=== PATIENT | female | born 1975 | race Caucasian/White ===

== ENCOUNTER 2020-07-02 15:12 | Emergency (ER) | payer MEDICARE, SELFPAY ==
--- NOTE | ~2020-07-02 | XR_ITS ---
EXAMINATION: XR chest 2V DATE: 07/02/2020 16:38 INDICATION: Asthma exacerbation. TECHNIQUE: Frontal and lateral views of the chest were obtained. COMPARISON: Chest 2 views 07/30/2007 FINDINGS: The chest demonstrates clear lungs without pneumonia, pleural effusion, or pneumothorax. Th e heart size is normal. Surgical clips in the right upper quadrant are likely from cholecystectomy. IMPRESSION: 1. No acute cardiopulmonary disease. Reviewed, dictated and finalized at location A. LINE [employer]PER[employer]ENT
[2020-07-02 15:22] VITALS: PULSE 99; RESP 20; O2SAT 99
--- NOTE | 2020-07-02 15:22 | ED.URI ---
HPI - URI/Sore Throat General Chief Complaint: Asthma Stated Complaint: breathing issues Time Seen by Provider: 07/02/20 15:22 Source: patient Mode of arrival: ambulatory Limitations: physical limitation History of Present Illness HPI Narrative: Madeleine Williamson is a 44 yo female with a PMH of asthma who comes to express care with asthma exacerbation, Pr is barely able to speak in a whisper and is not moving much air. States it started 4 hours ago and ran through her steroid inhaler. Pts O2 sats on arrival are 98% but she is retracting in her breathing. Patient has not had an asthma attack in about 4 years; she has no nebulizer or other medication at home for asthma exacerbation Patient is unsure what triggered this attack; no known environmental allergies. Related Data Home Medications Medication Instructions Recorded Confirmed budesonide-formoterol [Symbicort] 4.5 inh INHALATION PRN PRN 07/02/20 07/02/20 Allergies Allergy/AdvReac Type Severity Reaction Status Date / Time topiramate Allergy Severe STROKE Verified 07/02/20 15:35 LIKE SYSTOMS ON L SIDE nitrofurantoin Allergy Intermediate Headache Verified 07/02/20 15:35 Review of Systems Review of Systems: Narrative: CONSTITUTIONAL: Denies fever, chills, sweats. EYES: Denies visual changes, redness, discharge. ENT: Denies rhinorrhea, congestion, sore throat, otalgia. CARDIOVASCULAR: Denies chest pain, palpitations, edema. RESPIRATORY: Has dyspnea, wheezing, cough; unable to move air. Retracting GASTROINTESTINAL: Denies abdominal pain, nausea, vomiting, diarrhea. GENITOURINARY: Denies dysuria, hematuria, abnormal discharge SKIN: Denies rash or itching. NEUROLOGIC: Denies numbness, or focal weakness. PSYCHIATRIC: Denies anxiety or depression. [facility] Past Medical History Medical History Asthma Chronic pain disorder Family History Family History Sibling Asthma Father Hypertension Social History Social History (Updated 07/02/20 @ 15:33 by Izabela Willams CNP) Smoking status: Former smoker Alcohol intake: current Gender identity (if verbalized by the patient): Female Comments At time of signature, I agree with nursing past medical, surgical, social and family history. There is no relevant family history pertinent to the presenting complaint. Exam Narrative: Exam Narrative: GENERAL: This is a well-nourished, well-developed patient, in moderate distress. HEAD: normocephalic, atraumatic. EYES: Sclera clear/white. Vision is grossly intact. EARS: External ears normal, Hearing grossly intact. NOSE: External nose normal without nasal discharge, nares without redness, no rhinorrhea. THROAT: Mucous membranes moist, NECK: Neck supple, non-tender CARDIOVASCULAR: Tachycardic rate and rhythm without murmurs, gallops, or rubs. RESPIRATORY: Very diminished to auscultation. Breath sounds barely audible . No wheezes, rales, or rhonchi. GASTROINTESTINAL: Abdomen soft, non-tender, SKIN: warm, intact with no suspicious lesions or rash, good texture and turgor. NEURO: awake, alert, and oriented to person, place and time. There were no obvious focal neurologic abnormalities. Steady gait EXTREMITIES: Normal range of motion. BACK: Nontender without deformity Course Course Emergency Course: [facility], breathing Started on DuoNeb treatment and Solu-Medrol 125 IM. chest X-ray-no acute cardiopulmonary disease, no pneumonia no pleural effusion Assess after first treatment:O2 sats 97%, HR 96, BP 112/70 Breath sounds much improved patient still feels somewhat short of breath second treatment given Pt anxious, even after using Xopenex so order small number of ativan Reiterated criteria to go to ER if again becomes sob. Pt verbalizes understanding. Pt light headed, needs to hydrate and eat when discha
[2020-07-02 15:26] VITALS: BP 131/77; PULSE 90; RESP 20; TEMP 36.6; O2SAT 99
[2020-07-02] MEDS: IPRATROPIUM BR 0.02% INH SOLN 0.5 MG/2.5 ML VIAL 1.5 MG INHALATION (15:31)
[2020-07-02] MEDS: ALBUTEROL SULFATE NEB 2.5 MG/3 ML INH INHALATION (15:33)
[2020-07-02] MEDS: methylPREDNISolone SOD SUCC 125 MG VIAL IM (15:39)
[2020-07-02 16:48] VITALS: PULSE 96; RESP 20; O2SAT 97
[2020-07-02] MEDS: IPRATROPIUM BR 0.02% INH SOLN 0.5 MG/2.5 ML VIAL 1 MG INHALATION (16:52)
[2020-07-02 17:00] VITALS: BP 121/70; PULSE 96; O2SAT 97
[2020-07-02 17:57] VITALS: PULSE 94; RESP 18; O2SAT 98
== END 2020-07-02 17:57 | disposition home or self-care (01) ==
PROVIDERS: Emergency Provider Nurse Practitioner; PCP Nurse Practitioner Adult Health
DX: F41.9 Anxiety disorder, unspecified (principal); J45.901 Unspecified asthma with (acute) exacerbation
CPT/HCPCS: 71046; 94640; 96372; 99213; G0463; J2930

== ENCOUNTER 2021-01-02 05:49 | Emergency (ER) | payer MEDICARE, SELFPAY ==
[2021-01-02 05:52] VITALS: BP 131/74; PULSE 99; RESP 20; TEMP 36.6; O2SAT 99
--- NOTE | 2021-01-02 05:58 | ED.ASTHMA ---
HPI - Asthma General Chief Complaint: Asthma Stated Complaint: Asthma attack Time Seen by Provider: 01/02/21 05:54 History of Present Illness HPI Narrative: 45 yo female w/ h/o asthma presents to the ED c/o asthma attack. She reports that she was awoken from sleep because she cannot breath. She tried to find her inhaler, but she was not able to. This happens every year about this time. Related Data Home Medications Medication Instructions Recorded Confirmed budesonide-formoterol [Symbicort] 4.5 inh INHALATION PRN PRN 07/02/20 07/02/20 Allergies Allergy/AdvReac Type Severity Reaction Status Date / Time topiramate Allergy Severe STROKE Verified 01/02/21 05:57 LIKE SYSTOMS ON L SIDE nitrofurantoin Allergy Intermediate Headache Verified 01/02/21 05:57 Review of Systems Review of Systems: All systems reviewed & are unremarkable except as noted in HPI and below Constitutional: Constitutional: Denies fever(s) Cardiovascular: Cardiovascular: Denies chest pain Respiratory: Respiratory: Reports cough, Reports dyspnea and Reports wheezing PMFSH Past Medical History Medical History Asthma Chronic pain disorder Family History Family History Sibling Asthma Father Hypertension Social History Social History Smoking status: Former smoker Alcohol intake: current Gender identity (if verbalized by the patient): Female Exam Const: General: no acute distress and alert Orientation/consciousness: patient oriented x3 HENMT: Head: normal to inspection Neck: Neck: normal visual inspection Resp: Effort & Inspection: able to speak in complete sentences Auscultation: wheezes (minimal) Other: coughing forcefully Cardio: Rate: regular rate Rhythm: regular rhythm Skin: General skin exam: normal color Neuro: General: patient oriented x3, moves all extremities, no focal motor deficits and CN's II-XI intact bilaterally Speech: normal speech Extrem: General: normal to inspection Psych: Affect: Anxious affect present Course Vital Signs Vital signs: Vital Signs Temperature 36.6 C 01/02/21 05:52 Pulse Rate 99 01/02/21 05:52 Respiratory Rate 20 01/02/21 05:52 Blood Pressure 131/74 01/02/21 05:52 Pulse Oximetry 99 01/02/21 05:52 Temperature 36.6 C 01/02/21 05:52 Pulse Rate 87 01/02/21 06:24 Respiratory Rate 16 01/02/21 06:24 Blood Pressure 131/74 01/02/21 05:52 Pulse Oximetry 99 01/02/21 05:52 MDM - Asthma Differential Diagnosis Differential diagnosis: Likely Acute exacerbation and other (anxiety other) Medical Records Attestation: I reviewed the patient's medical records. Lab Data Attestation: I reviewed the patient's lab results. Discharge Plan Discharge Clinical Impression: Asthma Qualifiers: Asthma severity: mild Asthma persistence: intermittent Asthma complication type: uncomplicated Qualified Code(s): J45.20 - Mild intermittent asthma, uncomplicated Patient Disposition: Home, Self-Care Condition: Stable Instructions: Asthma (ED) Prescriptions: New albuterol sulfate 90 mcg/actuation HFA aerosol inhaler 2 puff inhalation QID PRN (Reason: shortness of breath or wheezing) Qty: 8.5 RF: 0 No Action budesonide-formoterol [Symbicort] 160-4.5 mcg/actuation HFA aerosol inhaler 4.5 inh INHALATION PRN PRN (Reason: Shortness Of Breath Or Wheezing) RF: 0 prednisone 20 mg tablet 40 mg PO DAILY 5 Days Qty: 10 RF: 0 albuterol sulfate 90 mcg/actuation HFA aerosol inhaler 2 puff inhalation QID PRN (Reason: shortness of breath or wheezing) Qty: 8.5 RF: 1 cetirizine [Zyrtec] 10 mg tablet 10 mg PO DAILY Qty: 30 RF: 0 lorazepam [Ativan] 1 mg tablet 1 mg PO BID PRN (Reason: anxiety) Qty: 5 RF: 0 Follow-up/Referrals: Davy,MARCIE Hanson [Primar
[2021-01-02 06:05] VITALS: PULSE 88; RESP 14
[2021-01-02 06:24] VITALS: PULSE 87; RESP 16
[2021-01-02 06:34] VITALS: BP 115/72; PULSE 89; RESP 18; O2SAT 97
--- NOTE | 2021-01-02 06:43 | PC.NURSE ---
Pt states she felt much better after breathing tx. lungs clear. no difficulty breathing. Pt discharged.
== END 2021-01-02 06:42 | disposition home or self-care (01) ==
PROVIDERS: Emergency Provider Emergency Medicine; PCP Nurse Practitioner Adult Health
DX: J45.20 Mild intermittent asthma, uncomplicated (principal); Z87.891 Personal history of nicotine dependence
CPT/HCPCS: 94640; 99281; 99283

== ENCOUNTER 2021-01-09 04:49 | Emergency (ER) | payer MEDICARE, SELFPAY ==
[2021-01-09 04:53] VITALS: BP 127/88; PULSE 109; RESP 14; TEMP 36.4; O2SAT 100
[2021-01-09 05:01] VITALS: PULSE 109
--- NOTE | 2021-01-09 05:07 | ED.ASTHMA ---
HPI - Asthma History of Present Illness HPI Narrative: 45 yo female w/ h/o asthma presents to the ED c/o SOB. She reports that she awoke from sleep ggasping for air. She used her inhaler with some improvement. She initially appeared in some distress, but quickly improved and is now stating that it was probably just anxiety. Related Data Home Medications Medication Instructions Recorded Confirmed budesonide-formoterol [Symbicort] 4.5 inh INHALATION PRN PRN 07/02/20 07/02/20 Allergies Allergy/AdvReac Type Severity Reaction Status Date / Time topiramate Allergy Severe STROKE Verified 01/02/21 05:57 LIKE SYSTOMS ON L SIDE nitrofurantoin Allergy Intermediate Headache Verified 01/02/21 05:57 Review of Systems Review of Systems: All systems reviewed & are unremarkable except as noted in HPI and below PMFSH Past Medical History Medical History Asthma Chronic pain disorder Family History Family History Sibling Asthma Father Hypertension Social History Social History Smoking status: Former smoker Alcohol intake: current Gender identity (if verbalized by the patient): Female Exam Const: General: healthy appearing and alert Orientation/consciousness: patient oriented x3 Other: Gasping loudly HENMT: Head: normal to inspection Neck: Neck: normal visual inspection Chest: Chest palpation & inspection: normal inspection of the chest Resp: Effort & Inspection: tachypneic Auscultation: clear to auscultation bilaterally Cardio: Rate: regular rate Rhythm: regular rhythm Neuro: General: patient oriented x3, moves all extremities, no focal motor deficits and CN's II-XI intact bilaterally Gait exam (Neuro): Normal gait present Extrem: General: normal to inspection Psych: Affect: Anxious affect present Course Vital Signs Vital signs: Vital Signs Temperature 36.4 C L 01/09/21 04:53 Pulse Rate 109 H 01/09/21 04:53 Respiratory Rate 14 01/09/21 04:53 Blood Pressure 127/88 01/09/21 04:53 Pulse Oximetry 100 01/09/21 04:53 Temperature 36.4 C L 08/08/21 04:53 Pulse Rate 100 01/09/21 05:22 Respiratory Rate 20 01/09/21 05:22 Blood Pressure 127/88 01/09/21 04:53 Pulse Oximetry 96 01/09/21 05:22 MDM - Asthma MDM Narrative Medical decision making narrative: Gasping for air, but with clear lungs. Quickly resolved without any treatment. Discharge Plan Discharge Clinical Impression: Asthma, Panic attack Patient Disposition: Home, Self-Care Condition: Stable Instructions: Anxiety (ED) Prescriptions: No Action budesonide-formoterol [Symbicort] 160-4.5 mcg/actuation HFA aerosol inhaler 4.5 inh INHALATION PRN PRN (Reason: Shortness Of Breath Or Wheezing) RF: 0 prednisone 20 mg tablet 40 mg PO DAILY 5 Days Qty: 10 RF: 0 albuterol sulfate 90 mcg/actuation HFA aerosol inhaler 2 puff inhalation QID PRN (Reason: shortness of breath or wheezing) Qty: 8.5 RF: 1 cetirizine [Zyrtec] 10 mg tablet 10 mg PO DAILY Qty: 30 RF: 0 lorazepam [Ativan] 1 mg tablet 1 mg PO BID PRN (Reason: anxiety) Qty: 5 RF: 0 albuterol sulfate 90 mcg/actuation HFA aerosol inhaler 2 puff inhalation QID PRN (Reason: shortness of breath or wheezing) Qty: 8.5 RF: 0 Follow-up/Referrals: Lotus,MARCIE Hanson [Primary Care Provider] -
--- NOTE | 2021-01-09 05:10 | PC.NURSE ---
Pt has period of loud inspiratory stridorous breathing, alternating with speaking in complete sentences. pt appears anxious, but able to answer questions appropriately. 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 RT in room - called on pt's arrival - and ED MD also in room. Pt requesting breathing tx, although 02 sats on RA 100%, skin pwd, and pt able to speak without difficulty in complete sentences. 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
[2021-01-09 05:22] VITALS: PULSE 100; RESP 20; O2SAT 96
== END 2021-01-09 05:24 | disposition home or self-care (01) ==
PROVIDERS: Emergency Provider Emergency Medicine; PCP Nurse Practitioner Adult Health
DX: J45.909 Unspecified asthma, uncomplicated (principal); F41.0 Panic disorder [episodic paroxysmal anxiety]; Z87.891 Personal history of nicotine dependence
CPT/HCPCS: 99281

== ENCOUNTER 2021-01-11 15:27 | Outpatient (CLI) | payer MEDICARE, SELFPAY ==
--- NOTE | ~2021-01-11 | MM_ITS ---
EXAMINATION: MM screening collin BI w alok HISTORY: Screening TECHNIQUE: Craniocaudal and mediolateral oblique 3-D tomosynthesis images were obtained and synthetic 2-D images were generated. CAD analysis was submitted and interpreted. COMPARISON: No prior mammogram is available for comparison at this institution. BREAST PARENCHYMAL COMPOSITION: The breasts are heterogeneously dense, which may obscure small masses . FINDINGS: There is no evidence of suspicious mass, calcification, or architectural distortion to sugg est malignancy in either breast. There has been no suspicious interval change. IMPRESSION: 1. No mammographic evidence of malignancy. 2. Recommend routine screening mammography in one year. BI-RADS Category 1: Negative Reviewed, dictated and finalized at location A.
== END 2021-01-11 15:28 | disposition home or self-care (01) ==
PROVIDERS: PCP Nurse Practitioner Adult Health; Visit Provider Nurse Practitioner Adult Health
DX: Z12.31 Encounter for screening mammogram for malignant neoplasm of breast (principal)
CPT/HCPCS: 77063; 77067

== ENCOUNTER 2021-01-18 11:12 | Outpatient (CLI) | payer MEDICARE, SELFPAY ==
--- NOTE | ~2021-01-18 | US_ITS ---
EXAMINATION: US transvaginal DATE: 01/18/2021 11:43 INDICATION: Menorrhagia. Left lower quadrant pain. Comparison:Ultrasound dated 04/08/2006 TECHNIQUE: Multiple transabdominal and endovaginal sonographic images of the pelvis performed. FINDINGS: The uterus measures 6.1 x 3 x 4.6 cm. The endometrial complex measures 6 mm. The right ovary measures 2.2 x 1.5 x 1.4 cm and the left ovary measures 3.4 x 1.9 x 1.9 cm. There ar e small follicles in each ovary. Normal doppler signal in both ovaries. There is no free fluid in the pelvis. There are no abnormal masses seen on either side. IMPRESSION: 1. Normal pelvic ultrasound. Reviewed, dictated and finalized at location A.
== END 2021-01-18 11:13 ==
LOC: MICIMG 11:13
PROVIDERS: PCP Nurse Practitioner Adult Health; Visit Provider Nurse Practitioner Adult Health
DX: N92.0 Excessive and frequent menstruation with regular cycle (principal)
CPT/HCPCS: 76830

== ENCOUNTER 2021-12-28 00:21 | Emergency (ER) | payer MEDICARE, SELFPAY ==
--- NOTE | ~2021-12-28 | XR_ITS ---
EXAMINATION: XR elbow LT min 3V DATE: 12/28/2021 01:13 INDICATION: Left elbow pain post fall TECHNIQUE: Anteroposterior, two oblique and lateral views of the left elbow were obtained. COMPARISON: 07/21/2013 FINDINGS: Alignment is normal. No fracture or joint effusion. Joint spaces are normal. Soft tissues are unremar kable. IMPRESSION: 1. Negative left elbow radiographs. Reviewed, dictated and finalized at location A.
--- NOTE | ~2021-12-28 | XR_ITS ---
EXAMINATION: XR elbow RT min 3V DATE: 12/28/2021 01:13 INDICATION: Right elbow pain post fall TECHNIQUE: Anteroposterior, two oblique and lateral views of the right elbow were obtained. COMPARISON: None. FINDINGS: Alignment is normal. No fracture or joint effusion. Joint spaces are normal. Soft tissues are unremar kable. IMPRESSION: 1. Negative right elbow radiographs. Reviewed, dictated and finalized at location A.
[2021-12-28 00:27] VITALS: BP 125/79; PULSE 97; RESP 18; TEMP 36.1; O2SAT 97
--- NOTE | 2021-12-28 00:49 | ED.UPPEXIN ---
HPI - Extremity Injury (Upper) General Chief Complaint: Extremity Injury, Upper Stated Complaint: left arm injury Time Seen by Provider: 12/28/21 00:37 Source: patient Mode of arrival: ambulatory Limitations: no limitations History of Present Illness HPI narrative: This is a 46 year old female that presents to the ER for bilateral elbow pain after a fall in the shower today. Reports she slipped and fell backwards. She did catch herself with her elbows, but also hit her head. She did not lose consciousness. Reports bilateral elbow pain. Denies vision changes, vomiting, or headache. Related Data Home Medications Medication Instructions Recorded Confirmed budesonide-formoterol HFA 160 4.5 inh inhalation PRN PRN 07/02/20 07/02/20 mcg-4.5 mcg/actuation aerosol Shortness Of Breath Or Wheezing inhaler (Symbicort) methylprednisolone 4 mg tablets in mg 12/28/21 12/28/21 a dose pack Allergies Allergy/AdvReac Type Severity Reaction Status Date / Time topiramate Allergy Severe STROKE Verified 12/28/21 00:41 LIKE SYSTOMS ON L SIDE nitrofurantoin Allergy Intermediate Headache Verified 12/28/21 00:41 gabapentin Allergy Nausea and Verified 12/28/21 00:41 Vomiting Review of Systems Review of Systems: CONSTITUTIONAL: Denies fever EYES: Denies visual changes GASTROINTESTINAL: Denies vomiting MUSCULOSKELETAL: Reports joint pain, and myalgia. NEUROLOGIC: Denies numbness, or weakness. All systems reviewed & are unremarkable except as noted in HPI and below PMFSH Past Medical History Medical History Asthma Chronic pain disorder Family History Family History Sibling Asthma Father Hypertension Social History Social History Smoking status: Former smoker Alcohol intake: current Gender identity (if verbalized by the patient): Female Exam Narrative: GENERAL: Well-appearing, well-nourished, and in no acute distress. HEAD: Normocephalic, atraumatic. EYES: PERRLA and EOMI. ENT: Nares clear, no rhinorrhea or epistaxis. Mucous membranes moist. Oropharynx without tonsillar hypertrophy exudate or other lesions. Bilateral TMs pearly lockwood non-bulging NECK: Supple. No adenopathy or masses. CHEST: Clear to auscultation. No respiratory distress. No wheezes rales or rhonchi HEART: Regular rate and rhythm. No murmur heard. Normal peripheral pulses. EXTREMITIES: Normal range of motion. No edema or obvious deformity. Normal radial pulses SKIN: Warm, dry, no rash. NEURO: No focal deficits. Alert and oriented x3. Cranial nerves II through XII grossly intact PSYCH: Normal mood and affect Course Vital Signs Vital signs: Vital Signs Temperature 97.0 F L 12/28/21 00:27 Pulse Rate 97 12/28/21 00:27 Respiratory Rate 18 12/28/21 00:27 Blood Pressure 125/79 12/28/21 00:27 Pulse Oximetry 97 12/28/21 00:27 Oxygen Delivery Room Air 12/28/21 00:27 Temperature 97.0 F L 12/28/21 00:27 Pulse Rate 97 12/28/21 00:27 Respiratory Rate 18 12/28/21 00:27 Blood Pressure 125/79 12/28/21 00:27 Pulse Oximetry 97 12/28/21 00:27 Oxygen Delivery Room Air 12/28/21 00:27 MDM - Extremity Injury (Upper) MDM Narrative Medical decision making narrative: Patient presents to the emergency department after a fall in the shower today with bilateral elbow pain. She reports that she did hit her head. She did not lose consciousness. She is not having any headache or vomiting. No deficits noted on exam. She is not on any blood thinners. Patient is neurovascularly intact. Bilateral elbow x-rays without acute osseous abnormalities. Patient instructed to rest, ice and take [id number] pain medication as needed. She was placed in a sling for comfort. She is to follow-up with her primary care doctor. She was given jayshree
[2021-12-28] MEDS: IBUPROFEN 600 MG TABLET PO (00:58)
== END 2021-12-28 02:37 | disposition home or self-care (01) ==
PROVIDERS: Emergency Provider General Practice; PCP Nurse Practitioner Adult Health
DX: S50.02XA Contusion of left elbow, initial encounter (principal); J45.909 Unspecified asthma, uncomplicated; G89.29 Other chronic pain; Z87.891 Personal history of nicotine dependence; W18.2XXA Fall in (into) shower or empty bathtub, initial encounter
CPT/HCPCS: 73080; 99284; A4565; A9270

== ENCOUNTER 2024-02-11 14:19 | Emergency (ER) | payer SELFPAY ==
--- NOTE | ~2024-02-11 | CT_ITS ---
EXAMINATION: CT abdomen pelvis w con DATE: 02/11/2024 16:49 INDICATION: RLQ pain TECHNIQUE: Computed tomography (CT) of the abdomen and pelvis was performed with 100 mL Omnipaque-350 intravenous contrast. Automated exposure control and iterative reconstruction technique were employe d. The dose-length product was 425.21 mGy-cm. COMPARISON: None. FINDINGS: Lower thorax: Diffusely low-density parenchyma. Liver: Normal. Biliary/Gallbladder: Gallbladder is absent. No bile duct dilation. Pancreas: No mass or duct dilation. Spleen: Normal. Adrenals:No mass. Kidneys: No suspicious mass, obstructing stone, or hydronephrosis. GI tract: Mild distal esophageal and gastric wall edema. Very minimal pericolonic stranding adjacent to the proximal sigmoid (axial 150, coronal 91). No small or large bowel dilation. Normal appendix. D iverticulosis without diverticulitis. Mesentery/Peritoneum: No ascites, mass, or free air. Retroperitoneum: No mass. Pelvis: Pelvic organs are within normal limits. Small uterine fibroid. Soft Tissues: Soft tissues and body wall unremarkable. Bones: No acute osseous finding. IMPRESSION: Hepatic steatosis. Mild distal esophageal and gastric wall edema. Very mild pericolonic stranding at the proximal sigmoid, may represent colitis or early diverticulosi s. Reviewed, dictated and finalized at location K. IMPRESSION: Hepatic steatosis. Mild distal esophageal and gastric wall edema. Very mild pericolonic stranding at the proximal sigmoid, may represent colitis or early diverticulosis.
[2024-02-11 14:26] VITALS: BP 148/84; PULSE 101; RESP 18; TEMP 36.3; O2SAT 100
--- NOTE | 2024-02-11 14:31 | ED.ABDPAIN ---
HPI - Abdominal Pain General Chief Complaint: Abdominal Pain <Meliza Lizama PA-C - Last Filed: 02/13/24 09:37> Stated Complaint: RIGHT LOWER ABD PAIN, NAUSEA <Meliza Lizama PA-C - Last Filed: 02/13/24 09:37> Time Seen by Provider: 02/11/24 14:31 <Meliza Lizama PA-C - Last Filed: 02/13/24 09:37> Focused HPI: This is a 48-year-old female that presents to the emergency department for right lower quadrant abdominal pain. Ongoing over the last couple of days. Reports nausea. Denies fevers, vomiting. GENERAL: Well-appearing, well-nourished, and in no acute distress. HEAD: Normocephalic, atraumatic. CHEST: Clear to auscultation. ?No respiratory distress. HEART: Regular rate and rhythm.? NEURO: ?Alert and oriented x3. Patient screened in triage and initial orders placed.? ?Additional care and disposition to be based upon?diagnostic testing and treatment. <Meliza Lizama PA-C - Last Filed: 02/13/24 09:37> History of Present Illness HPI narrative: Agree with HPI. Patient with 3 days of abdominal pain right lower quadrant aching in become more sharp. Worse with palpation. Has been able on bowel movements. No diarrhea. No fevers chills or sweats. Sent to rule out appendicitis. <Benjamin Pérez MD - Last Filed: 02/11/24 21:57> Related Data Home Medications: Home Medications Medication Instructions Recorded Confirmed budesonide-formoterol HFA 160 4.5 inh inhalation PRN PRN 07/02/20 07/02/20 mcg-4.5 mcg/actuation aerosol Shortness Of Breath Or Wheezing inhaler (Symbicort) methylprednisolone 4 mg tablets in mg 12/28/21 12/28/21 a dose pack <DEYVI Oshea Last Filed: 02/13/24 09:37> Allergies/Adverse Reactions: Allergies Allergy/AdvReac Type Severity Reaction Status Date / Time topiramate Allergy Severe STROKE Verified 12/28/21 00:41 LIKE SYSTOMS ON L SIDE nitrofurantoin Allergy Intermediate Headache Verified 12/28/21 00:41 gabapentin Allergy Nausea and Verified 12/28/21 00:41 Vomiting <Meliza Lizama PA-C - Last Filed: 02/13/24 09:37> Review of Systems Review of Systems: All systems reviewed & are unremarkable except as noted in HPI and below <Benjamin Pérez MD - Last Filed: 02/11/24 21:57> Constitutional: Constitutional: Reports no additional constitutional complaints <Benjamin Pérez MD - Last Filed: 02/11/24 21:57> Cardiovascular: Cardiovascular: Reports no additional cardiovascular complaints <Benjamin Pérez MD - Last Filed: 02/11/24 21:57> Respiratory: Respiratory: Reports no additional respiratory complaints <Benjamin Pérez MD - Last Filed: 02/11/24 21:57> Gastrointestinal: Gastrointestinal: Reports abdominal pain, Denies constipation, Denies diarrhea, Denies nausea and Denies vomiting <Benjamin Pérez MD - Last Filed: 02/11/24 21:57> Genitourinary: Genitourinary: Reports no additional female genitourinary complaints <Benjamin Pérez MD - Last Filed: 02/11/24 21:57> PMFSH Past Medical History Medical History: Medical History Asthma Chronic pain disorder <Meliza Lizama PA-C - Last Filed: 02/13/24 09:37> Family History Family History: Family History Sibling Asthma Father Hypertension <Meliza Lizama PA-C - Last Filed: 02/13/24 09:37> Social History Social History: Social History Smoking status: Former smoker Alcohol intake: current Gender identity (if verbalized by the patient): Female <Meliza Lizama PA-C - Last Filed: 02/13/24 09:37> Exam Narrative: GENERAL: Well-appearing, well-nourished, and in no acute distress. HEAD: Normocephalic, atraumatic. ENT: Mucous membranes moist. CHEST: Clear to auscultation. No respiratory distress. HEART: Regular rate and rhythm. Normal p
[2024-02-11 15:19] LABS: BEDSIDEPREGUCG Negative (Negative)
[2024-02-11 15:24] LABS: Basophils Percent Auto 0.7 % (0.2-1.2); Eosinophils Absolute Auto 0.1 K/mm3 (0-0.3); Eosinophils Percent Auto 2.5 % (0-4.4); Hematocrit 39.1 % (37.0-47.0); Hemoglobin 12.9 g/dL (12.0-15.0); Immature Granulocyte Absolute 0.01 K/mm3 (0.00-0.031); Immature Granulocyte Percent A 0.2 % (0-0.5); Lymphocytes Absolute Auto 1.95 K/mm3 (0.9-3.2); Lymphocytes Percent Auto 44.8 % (18.3-44.2); Mean Corpuscular Hemoglobin 31.8 pg (26-34); Mean Corpuscular Volume 96.3 fl (80-100); Mean Platelet Volume 10.4 fl (7.4-10.4); Monocytes Absolute Auto 0.4 K/mm3 (0.1-0.6); Neutrophils Absolute Auto 1.9 K/mm3 (1.3-6.7); Neutrophils Percent Auto 42.8 % (45.5-73.1); Platelet Count Result 227 k/mm3 (150-375); Red Blood Count 4.06 M/mm3 (4.2-5.4); Red Cell Distribution Width 12.4 % (11.5-14.5); White Blood Count 4.4 K/mm3 (4.5-10.0)
[2024-02-11 15:30] LABS: Add Urine Microscopic? YES; Appearance Urine Cloudy (Clear); Bacteria Urine None Seen /hpf; Bilirubin Urine Negative (Negative); Blood Urine Negative (Negative); Color Urine Dark Yellow (Yellow); Glucose Urine UA Negative (Negative); Ketones Urine Negative (Negative); Leukocyte Esterase Ur Negative LEU/UL (Negative); Nitrate Urine Negative (Negative); Non Pathogenic Casts 0-2; Protein Urine Negative (Negative); RBC Urine 0-2 /hpf (0-2); Specific Grav Ur 1.013 (1.001-1.035); Squamous Epithelial Cell Urine None Seen /hpf (Few); Urobilinogen Urine 0.2 mg/dL (<2.0); WBC Urine 0-5 /hpf (0-3)
[2024-02-11 15:33] LABS: Alanine Aminotransferase 25 U/L (6-35); Albumin Level 4.2 g/dL (3.5-5.1); Alkaline Phosphatase 92 U/L (38-126); Anion Gap 13 mmol/L (4-12); Aspartate Amino Transferase 32 U/L (14-36); Bilirubin,Total 0.2 mg/dL (0.2-1.3); Blood Urea Nitrogen 12 mg/dL (7-17); Calcium 9.9 mg/dL (8.4-10.2); Carbon Dioxide 21 mmol/L (22-30); Chloride 109 mmol/L (98-107); Estimated CRCL calculation 84 ml/min; Estimated Glomerular Filt Rate > 60; Glucose 110 mg/dL (65-110); Lipase 129 U/L (23-300); Potassium 3.2 mmol/L (3.4-5.0); Sodium 143 mmol/L (137-145)
[2024-02-11 17:29] VITALS: BP 134/90; PULSE 81; RESP 16; TEMP 36.3; O2SAT 99
[2024-02-11 18:57] LABS: Magnesium 1.8 mg/dL (1.6-2.3)
[2024-02-11 20:28] VITALS: BP 141/94; PULSE 66; RESP 19; O2SAT 100
[2024-02-11] MEDS: AMOXICILLIN/CLAVULANATE K 875-125 MG TAB 1 TABLET PO (20:37)
[2024-02-11] MEDS: MORPHINE SULFATE (*CRX) 4 MG/ML INJ IV PUSH (20:39)
[2024-02-11 22:17] VITALS: BP 140/97; PULSE 84; RESP 17; O2SAT 98
== END 2024-02-11 22:18 | disposition home or self-care (01) ==
PROVIDERS: Physician Assistant; Emergency Provider Emergency Medicine
DX: R10.31 Right lower quadrant pain (principal); K57.92 Diverticulitis of intestine, part unspecified, without perforation or abscess without bleeding; J45.909 Unspecified asthma, uncomplicated; G89.29 Other chronic pain
CPT/HCPCS: 36415; 74177; 80053; 81001; 81025; 83690; 83735; 85025; 96374; 99284; A9270; J2270; Q9967

== ENCOUNTER 2024-09-23 13:12 | Outpatient (CLI) | payer MEDICARE, SELFPAY ==
--- NOTE | ~2024-09-23 | US_ITS ---
US pelvic complete w TV Ordering provider: Art Montenegro MD History: . N93.9 - Abnormal uterine and vaginal bleeding, unspecified . Comparison: None. Technique: Transabdominal and endovaginal ultrasound of the pelvis (Doppler ultrasound interrogation techniques used as needed for this exam.) FINDINGS: CERVIX: Normal. UTERUS: Measures 7.1x 3.2x 3.5 cm in length which is within normal limits and is anteverted. Hypoech oic area seen in the fundus measuring 1.4 x 1.1 x 1.5 cm. ENDOMETRIUM: Normal in thickness measuring 5 mm. No endometrial masses, cysts or fluid. CUL DE SAC: No free fluid. RIGHT OVARY: Not visualized. LEFT OVARY: Not visualized. ADNEXA: Normal. No mass. IMPRESSION: Fibroid uterus. Ovaries not well demonstrated. Otherwise, normal pelvic ultrasound. Reviewed, dictated and finalized at location A. IMPRESSION: Fibroid uterus. Ovaries not well demonstrated. Otherwise, normal pelvic ultraso und.
== END 2024-09-23 13:13 | disposition home or self-care (01) ==
LOC: MICIMG 13:13
PROVIDERS: Visit Provider Student in an Organized Health Care Education/Training Program
DX: D25.9 Leiomyoma of uterus, unspecified (principal); N93.9 Abnormal uterine and vaginal bleeding, unspecified
CPT/HCPCS: 76830; 76856

== ENCOUNTER 2024-11-05 14:50 | Outpatient (CLI) | payer MEDICARE, SELFPAY ==
--- OUTSIDE RECORDS SUMMARY | 2024-11-05 15:01 | XMS_ITS | Data Portability ---
Author Organization [facility] [employer], Main Office Address [address] [place] [address] Assessment No assessment recorded. Plan of Treatment Reminders Order Date Submit Date Provider Last Modified By Organization Details Last Modified Time Details Appointments None recorded. Lab CBC w/ auto diff 2024 025 [facility] (Lab), [address] [place], [address], 13:16:00 CMP, serum or plasma 2024 025 [facility] (Lab), [address] [place], [address], 13:15:58 TSH, serum or plasma 2024 025 [facility] (Lab), [address] [place], [address], 13:16:04 lipid panel, serum 2024 025 [facility] (Lab), [address] [place], [address], 13:15:57 glycohemog lobin, total, blood 2024 [facility] [address] ([facility] [address] [place], [address], 5 07:59:17 vitamin B12 + folate, serum or blood 2024 025 [facility] (Lab), [address] [place], [address], 13:16:03 ROSE (antinucle ar antibodies ) panel, serum 2024 025 [facility] (Lab), [address] [place], [address], 08:00:[address] referral - Would like hysterecto my. Please call patient to schedule an appointmen t. Thank you 2024 025 AAYUSH Mcnair MD, [address] [facility] [address], [place], [address], 17:40:25 Procedures None recorded. Surgeries None recorded. Imaging None recorded. Medication Orders furosemide 20 mg tablet 2024 [id number], [address], [place], [place], [id number], 15:39:52 Patient TargetsNo targets recorded. Patient InstructionsNo instructions recorded. 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 Please call patient to schedule an appointment. Thank you Referring Physician: Cynthia Irwin, Family Medicine, Encounter Date: 09/09/2024 Results Created Date Observation Date Name Description Value Unit Range Abnormal Flag Note LastModifiedBy Organization Detail LastModifiedTime 01/02/20 21 01/02/2021 VITAM IN B12/F OLATE , SERUM PANEL vitamin B12 299 pg/mL 200-11 00 normal Pleas e Note: Altho ugh the refer ence range for vitam in B12 is 200-1 100 pg/mL , it has been repor natanael that betwe en 5 and 10% of patie nts with value s betwe en 200 and 400 pg/mL may exper ience neuro psych iatri c and hemat ologi c abnor malit ies due to occul t B12 defic iency ; less than 1% of patie nts with value s above 400 pg/mL will have sympt oms. Not Available [facility] [address], [address], 01/02/2021 08:50:46 01/02/20 21 01/02/2021 VITAM IN B12/F OLATE , SERUM PANEL folate, serum 3.6 NG/mL low Refer ence Range Low: <3.4 Borde rline : 3.4-5 .4 Di l: >5.4 Not Available [facility] [address], [address], 01/02/2021 08:50:46 01/09/20 21 01/09/2021 CBC (INCL UDES DIFF/ PLT) white blood cell count 6.6 thous and/u L 3.8-10 .8 normal Not Available [facility] [address], [address], 01/09/2021 07:32:22 01/09/20 21 01/09/2021 CBC (INCL UDES DIFF/ PLT) red blood cell count 3.64 monique on/uL 3.80-5 .10 low Not Available [facility] [address], [address], 01/09/2021 07:32:22 01/09/20 21 01/09/2021 CBC (INCL UDES DIFF/ PLT) hemoglobin 12.5 g/dL 11.7-1 5.5 normal Not Available [facility] [address], [address], 01/09/2021 07:32:22 01/09/20 21 01/09/2021 CBC (INCL UDES DIFF/ PLT) hematocrit 36.4 % 35.0-4 5.0 normal Not Available [facility] [address], [address], 01/09/2021 07:32:22 01/09/20 21 01/09/2021 CBC (INCL UDES DIFF/ PLT) MCV 100.0 fL 80.0-1 00.0 normal Not Available [address], [address], 01/09/2021 07:32:22 01/09/20 21 01/09/2021 CBC (INCL UDES DIFF/ PLT) MCH 34.3 pg 27.0-3 3.0 high Not Available [address], [address], 01/09/2021 07:32:22 01/09/20 21 01/09/2021 CBC (INCL UDES DIFF/ PLT) MCHC 34.3 g/dL 32.0-3 6.0 normal Not Available [address], [address], 01/09/2021 07:32:22 01/09/20 21 01/09/2021 CBC (INCL UDES DIFF/ PLT) RDW 11.7 % 11.0-1 5.0 normal Not Available [address], [address], 01/09/2021 07:32:22 01/09/20 21 01/09/2021 CBC (INCL UDES DIFF/ PLT) platelet count 244 thous and/u L 140-40 0 normal Not Available [address], [address], 01/09/2021 07:32:22 01/09/20 21 01/09/2021 CBC (INCL UDES DIFF/ PLT) MPV 10.3 fL 7.5-12 .5 normal Not Available [address], [address], 01/09/2021 07:32:22 01/09/20 21 01/09/2021 CBC (INCL UDES DIFF/ PLT) absolute neutrophils 3696 cells /uL 1500-7 800 normal Not Available [address], [address], 01/09/2021 07:32:22 01/09/20 21 01/09/2021 CBC (INCL UDES DIFF/ PLT) absolute lymphocytes 2171 cells /uL 850-39 00 normal Not Available [address], [address], 01/09/2021 07:32:22 01/09/20 21 01/09/2021 CBC (INCL UDES DIFF/ PLT) absolute monocytes 587 cells /uL 200-95 0 normal Not Available [address], [address], 01/09/2021 07:32:22 01/09/20 21 01/09/2021 CBC (INCL UDES DIFF/ PLT) absolute eosinophils 92 cells /uL 15-500 normal Not Available [address], [address], 01/09/2021 07:32:22 01/09/20 21 01/09/2021 CBC (INCL UDES DIFF/ PLT) absolute basophils 53 cells /uL 0-200 normal Not Available [address], [address], 01/09/2021 07:32:22 01/09/20 21 01/09/2021 CBC (INCL UDES DIFF/ PLT) neutrophils 56 % normal Not Available [address], [address], 01/09/2021 07:32:22 01/09/20 21 01/09/2021 CBC (INCL UDES DIFF/ PLT) lymphocytes 32.9 % normal Not Available [address], [address], 01/09/2021 07:32:22 01/09/20 21 01/09/2021 CBC (INCL UDES DIFF/ PLT) monocytes 8.9 % normal Not Available [facility] [place] [address], [place], [address], 01/09/2021 07:32:22 01/09/20 21 01/09/2021 CBC (INCL UDES DIFF/ PLT) eosinophils 1.4 % normal Not Available [facility] [address], [place], [address], 01/09/2021 07:32:22 01/09/20 21 01/09/2021 CBC (INCL UDES DIFF/ PLT) basophils 0.8 % normal Not Available [facility] [address], [place], [address], 01/09/2021 07:32:22 03/16/20 21 03/16/2021 rapid strep group A, throa t STREP A negati ve Not Available [facility] [address] , [address], [place], [address], 03/16/2021 12:52:03 07/06/19 23 07/06/2022 COLOG UARD cologuard result reportable negati ve negati ve NEGAT GERMÁN TEST RESUL T. A negat germán Colog uard resul t indic ates a low likel ihood that a color ectal cance r (CRC) or advan arthur adeno ma (yoel omato us polyp s with more advan arthur pre-m align ant featu res) is prese nt. The chanc e that a perso n with a negat germán Colog uard test has a color ectal cance r is less than 1 in 1500 (nega tive predi ctive value >99.9 %) or has an advan arthur adeno ma is less than 5.3% (nega tive predi ctive value 94.7% ). These data are based on a prosp ectiv e cross -sect ional study of 10,00 0 indiv idual s at [facility] risk for color ectal cance r who were scree matheus with both Colog uard and colon oscop y. (Leeann Hernandez al, N Engl J Med 2014; 370(1 4):12 86-12 97) The di l value (refe rence range ) for this assay is negat germán. COLOG UARD RE-SC GALA BROCK RECOM MENDA TION: Perio dic color ectal cance r scree rafat is an impor tant part of preve ntive healt hcare for asymp tomat ic indiv idual s at [facility] risk for color ectal cance r. Follo wing a negat germán Colog uard resul t, the Ameri can Cance r Socie ty and U.S. Multi -Soci ety Task Force scree rafat guide lines recom mend a Colog uard re-sc reearlene ng inter cherry of 3 years . Refer ences : Ameri can Cance r Socie ty Guide line for Color ectal Cance r Scree rafat: https ://kaden w.can cer.o rg/ca ncer/ colon -rect al-ca ncer/ detec tion- diagn osis- stagi ng/ac s-rec ommen datio ns.ht ml.; Eugenio DK, Nadya vazquez CR, Vince weaver JK, Color ectal Cance r Scree rafat: Recom menda tions for Physi cians and Patie nts from the U.S. Multi -Soci ety Task Force on Color ectal Cance r Scree rafat , Am Radha gutierrez y 2017; 112:1 016-1 030. TEST DESCR IPTIO N: Pershing site algor ithmi c shanon sis of stool DNA-b iomar kers with hemog lobin immun oassa y. Quant itati ve value s of indiv idual bioma rkers are not repor table and are not assoc iated with indiv idual bioma rker resul t refer ence range s. Colog uard is inten ded for color ectal cance r scree rafat of adult s of eithe r sex, 45 years or older , who are at [facility] for color ectal cance r (CRC) . Colog uard has been appro jacob for use by the U.S. FDA. The perfo rmanc e of Colog uard was estab lishe d in a cross secti onal study of [facility] sk adult s aged 50-84 . Colog uard perfo rmanc e in patie nts ages 45 to 49 years was estim ated by geovanny claudio sis of near- age group s. Colon oscop ies perfo rmed for a posit germán resul t may find as the most clini mitch signi fican t lesio n: color ectal cance r [4.0% ], advan arthur adeno ma (incl uding sessi le fred natanale polyp s great er than or equal to 1cm diame ter) [20%] or non- advan arthur adeno ma [31%] ; or no color ectal neopl blanca [45%] . These estim ates are deriv ed from a prosp ectiv e cross -sect ional scree rafat study of 0 indiv idual s at [facility] risk for color ectal cance r who were scree matheus with both Colog uard and colon oscop y. (Leeann Coelho et al, N Engl J Med 2014; 370(1 4):12 86-12 97.) Colog uard may produ ce a false negat germán or false posit germán resul t (no color ectal cance r or preca ncero us polyp prese nt at colon oscop y follo w up). A negat germán Colog uard test resul t does not guara ntee the absen ce of CRC or advan arthur adeno ma (pre- cance r). The curre nt Colog uard scree rafat inter cherry is every 3 years . (Amer ican Cance r Socie ty and U.S. Multi -Soci ety Task Force ). Colog uard perfo rmanc e data in a 0 patie nt pivot al study using colon oscop y as the refer ence metho d can be acces sed at the follo wing locat ion: www.e xactl abs.c om/re sults . Addit ional descr iptio n of the Colog uard test proce ss, warni ngs and preca ution s can be found at www.c ologu vj.c om. Not Available [facility] (Cologuard Orders Only) [address], [place], [address], 07/13/2022 11:20:52 09/12/1909/15/2024 LIPID PANEL , STAND VJ cholesterol, total 286 mg/dL <200 high Not Available [facility] [address] [place], [address], 09/15/2024 13:15:57 09/12/1909/15/2024 LIPID PANEL , STAND VJ HDL cholesterol 119 mg/dL > or = 50 normal Not Available [facility] [address] [address] [place], [address], 09/15/2024 13:15:57 09/12/19 25 09/15/2024 LIPID PANEL , STAND VJ triglyceride s 92 mg/dL <150 normal Not Available [facility] [place] [address] [place], [address], 09/15/2024 13:15:57 09/12/1909/15/2024 LIPID PANEL , STAND VJ LDL-choleste rol 147 mg/dL _(eron c) high Refer ence range : <100 Annie able range <100 mg/dL for prima ry preve ntion ; <70 mg/dL for patie nts with CHD or diabe tic patie nts with > or = 2 CHD risk facto rs. LDL-C is now calcu lated using the Janet n-Hop kins calcu elsy n, which is a valid ated novel metho d provi mic farfan r accur acy than the Fried britney equat ion in the estim ation of LDL-C . Janet bui SS et al. KASIA. 2013; 310(1 9): 2061- 2068 (http ://ed ucati on.Qu estDi eddieos tics. com/f aq/FA Q164) Not Available [facility] [address] [place], [address], 09/15/2024 13:15:57 09/12/19 09/15/2024 LIPID PANEL , STAND VJ chol/HDLC ratio 2.4 (calc ) <5.0 normal Not Available [address], [address], 09/15/2024 13:15:57 09/12/19 25 09/15/2024 LIPID PANEL , STAND VJ non HDL cholesterol 167 mg/dL _(eron c) <130 high For patie nts with diabe syeda plus 1 major ASCVD risk facto r, treat ing to a non-H DL-C goal of <100 mg/dL (LDL- C of <70 mg/dL ) is consi dered a thera peuti c optio n. Not Available [address] [address] [place], [address], 09/15/2024 13:15:57 09/12/19 25 09/15/2024 COMPR EHENS GERMÁN METAB OLIC PANEL glucose 109 mg/dL 65-99 high Fasti ng refer ence inter cherry For someo ne witho ut known diabe syeda, a gluco se value betwe en 100 and 125 mg/dL is consi stent with predi abete s and shoul d be confi rmed with a follo w-up test. Not Available [address], [address], 09/15/2024 13:15:58 09/12/1909/15/2024 COMPR EHENS GERMÁN METAB OLIC PANEL urea nitrogen (BUN) 21 mg/dL 7-25 normal Not Available [facility] [place] [address] [place], [address], 09/15/2024 13:15:58 09/12/19 25 09/15/2024 COMPR EHENS GERMÁN METAB OLIC PANEL creatinine 0.68 mg/dL 0.50-1 .03 normal Not Available [place] [address] [place], [address], 09/15/2024 13:15:58 09/12/19 25 09/15/2024 COMPR EHENS GERMÁN METAB OLIC PANEL eGFR 106 mL/mi n/1.7 3m2 > or = 60 normal Not Available [address], [address], 09/15/2024 13:15:58 09/12/19 25 09/15/2024 COMPR EHENS GERMÁN METAB OLIC PANEL BUN/creatini ne ratio SEE NOTE: (calc ) 6-22 Not Repor natanael: BUN and Creat inine are withi n refer ence range . Not Available [address], [address], 09/15/2024 13:15:58 09/12/19 25 09/15/2024 COMPR EHENS GERMÁN METAB OLIC PANEL sodium 139 mmol/ L 135-14 6 normal Not Available [address], [address], 09/15/2024 13:15:58 09/12/19 25 09/15/2024 COMPR EHENS GERMÁN METAB OLIC PANEL potassium 3.6 mmol/ L 3.5-5. 3 normal Not Available [address], [address], 09/15/2024 13:15:58 09/12/19 25 09/15/2024 COMPR EHENS GERMÁN METAB OLIC PANEL chloride 97 mmol/ L 98-110 low Not Available [address], [address], 09/15/2024 13:15:58 09/12/19 25 09/15/2024 COMPR EHENS GERMÁN METAB OLIC PANEL carbon dioxide 31 mmol/ L 20-32 normal Not Available [address], [address], 09/15/2024 13:15:58 09/12/19 25 09/15/2024 COMPR EHENS GERMÁN METAB OLIC PANEL calcium 10.1 mg/dL 8.6-10 .4 normal Not Available [address], [address], 09/15/2024 13:15:58 09/12/19 25 09/15/2024 COMPR EHENS GERMÁN METAB OLIC PANEL protein, total 7.8 g/dL 6.1-8. 1 normal Not Available [address], [address], 09/15/2024 13:15:58 09/12/19 25 09/15/2024 COMPR EHENS GERMÁN METAB OLIC PANEL albumin 4.5 g/dL 3.6-5. 1 normal Not Available [address], [address], 09/15/2024 13:15:58 09/12/19 25 09/15/2024 COMPR EHENS GERMÁN METAB OLIC PANEL globulin 3.3 g/dL_ (calc ) 1.9-3. 7 normal Not Available [address], [address], 09/15/2024 13:15:58 09/12/19 25 09/15/2024 COMPR EHENS GERMÁN METAB OLIC PANEL albumin/glob ulin ratio 1.4 (calc ) 1.0-2. 5 normal Not Available [address], [address], 09/15/2024 13:15:58 09/12/19 25 09/15/2024 COMPR EHENS GERMÁN METAB OLIC PANEL bilirubin, total 0.9 mg/dL 0.2-1. 2 normal Not Available [address], [address], 09/15/2024 13:15:58 09/12/19 25 09/15/2024 COMPR EHENS GERMÁN METAB OLIC PANEL alkaline phosphatase 83 U/L 37-153 normal Not Available [address], [address], 09/15/2024 13:15:58 09/12/19 25 09/15/2024 COMPR EHENS GERMÁN METAB OLIC PANEL AST 27 U/L 10-35 normal Not Available [address], [address], 09/15/2024 13:15:58 09/12/19 25 09/15/2024 COMPR EHENS GERMÁN METAB OLIC PANEL ALT 21 U/L 6-29 normal Not Available [address], [address], 09/15/2024 13:15:58 09/12/19 25 09/15/2024 CBC (INCL UDES DIFF/ PLT) white blood cell count 7.9 thous and/u L 3.8-10 .8 normal Not Available [address], [address], 09/15/2024 13:15:59 09/12/19 25 09/15/2024 CBC (INCL UDES DIFF/ PLT) red blood cell count 4.47 monique on/uL 3.80-5 .10 normal Not Available [address], [address], 09/15/2024 13:15:59 09/12/19 25 09/15/2024 CBC (INCL UDES DIFF/ PLT) hemoglobin 14.8 g/dL 11.7-1 5.5 normal Not Available [address], [address], 09/15/2024 13:15:59 09/12/19 25 09/15/2024 CBC (INCL UDES DIFF/ PLT) hematocrit 44.5 % 35.0-4 5.0 normal Not Available [address], [address], 09/15/2024 13:15:59 09/12/19 25 09/15/2024 CBC (INCL UDES DIFF/ PLT) MCV 99.6 fL 80.0-1 00.0 normal Not Available [address], [address], 09/15/2024 13:15:59 09/12/19 25 09/15/2024 CBC (INCL UDES DIFF/ PLT) MCH 33.1 pg 27.0-3 3.0 high Not Available [address], [address], 09/15/2024 13:15:59 09/12/19 25 09/15/2024 CBC (INCL UDES DIFF/ PLT) MCHC 33.3 g/dL 32.0-3 6.0 normal For adult s, a sligh t decre ase in the calcu lated MCHC value (in the range of 30 to 32 g/dL) is most likel y not clini mitch signi cali t; fracisco er, it shoul d be inter prete d with cauti on in [facility] n with other red cell tara eters and the patie nt's clini eron condi tion. Not Available [address], [address], 09/15/2024 13:15:59 09/12/19 25 09/15/2024 CBC (INCL UDES DIFF/ PLT) RDW 12.3 % 11.0-1 5.0 normal Not Available [address], [address], 09/15/2024 13:15:59 09/12/19 25 09/15/2024 CBC (INCL UDES DIFF/ PLT) platelet count 202 thous and/u L 140-40 0 normal Not Available [address], [address], 09/15/2024 13:15:59 09/12/19 25 09/15/2024 CBC (INCL UDES DIFF/ PLT) MPV 10.6 fL 7.5-12 .5 normal Not Available [address], [address], 09/15/2024 13:15:59 09/12/19 25 09/15/2024 CBC (INCL UDES DIFF/ PLT) absolute neutrophils 5301 cells /uL 1500-7 800 normal Not Available [address], [address], 09/15/2024 13:15:59 09/12/19 25 09/15/2024 CBC (INCL UDES DIFF/ PLT) absolute lymphocytes 1793 cells /uL 850-39 00 normal Not Available [address], [address], 09/15/2024 13:15:59 09/12/19 25 09/15/2024 CBC (INCL UDES DIFF/ PLT) absolute monocytes 593 cells /uL 200-95 0 normal Not Available [address], [address], 09/15/2024 13:15:59 09/12/19 25 09/15/2024 CBC (INCL UDES DIFF/ PLT) absolute eosinophils 182 cells /uL 15-500 normal Not Available [address], [address], 09/15/2024 13:15:59 09/12/19 25 09/15/2024 CBC (INCL UDES DIFF/ PLT) absolute basophils 32 cells /uL 0-200 normal Not Available [facility] [address], [address], 09/15/2024 13:15:59 09/12/19 25 09/15/2024 CBC (INCL UDES DIFF/ PLT) neutrophils 67.1 % normal Not Available [address], [address], 09/15/2024 13:15:59 09/12/19 25 09/15/2024 CBC (INCL UDES DIFF/ PLT) lymphocytes 22.7 % normal Not Available [place] [address] [place], [address], 09/15/2024 13:15:59 09/12/19 25 09/15/2024 CBC (INCL UDES DIFF/ PLT) monocytes 7.5 % normal Not Available [place] [address] [place], [address], 09/15/2024 13:15:59 09/12/19 25 09/15/2024 CBC (INCL UDES DIFF/ PLT) eosinophils 2.3 % normal Not Available [address], [address], 09/15/2024 13:15:59 09/12/19 25 09/15/2024 CBC (INCL UDES DIFF/ PLT) basophils 0.4 % normal Not Available [place] [address] [place], [address], 09/15/2024 13:15:59 09/12/19 25 09/15/2024 ROSE SCREE N, IFA, W/REF L TITER AND VANNESSA RN ROSE screen, ifa POSITI VE negati ve abnormal ROSE IFA is a first line scree n for detec ting the prese nce of up to appro ximat sydni 150 autoa ntibo dies in vario us autoi mmune disea ses. A posit germán ROSE IFA resul t is sugge stive of autoi mmune disea se and refle xes to titer and vannessa sidhu. Furth er labor atory testi ng may be consi dered if clini mitch indic ated. For addit ional infor myron osborne e refer to http: //benita Alex stDia gnost ics.c om/fa q/FAQ 177 (This link is being provi ded for infor eli dyson/ maci spivey purpo ses only. ) Not Available [address] [address] [place], [address], 09/15/2024 13:16:01 09/12/19 25 09/15/2024 ANTIN UCLEA R ANTIB ODIES TITER AND PATTE RN ROSE titer 1:80 titer high A low level ROSE titer may be prese nt in pre-c linic al autoi mmune disea ses and di l indiv idual s. Refer ence Range <1:40 Negat germán 1:40- 1:80 Low Antib debby Level >1:80 [place] natanael Antib debby Level Not Available [address], [address], 09/15/2024 13:16:02 09/12/19 25 09/15/2024 ANTIN UCLEA R ANTIB ODIES TITER AND PATTE RN ROSE pattern Nuclea r, Dense Fine Speckl ed abnormal Dense fine speck led patte rn is seen in di l indiv idual s and rarel y assoc iated with syste duke lupus eryth emato sis (SLE) , Sjogr en's syndr ome and syste duke scler osis. AC-2: Dense Fine Speck led Inter natio nal Conse nsus on ROSE Patte rns (http s://d oi.or g/10. 1515/ cclm- 2017- 0052) Not Available [address], [address], 09/15/2024 13:16:02 09/12/19 25 09/15/2024 VITAM IN B12/F OLATE , SERUM PANEL vitamin B12 549 pg/mL 200-11 00 normal Not Available [address], [address], 09/15/2024 13:16:03 09/12/19 25 09/15/2024 VITAM IN B12/F OLATE , SERUM PANEL folate, serum 13.0 NG/mL normal Refer ence Range Low: <3.4 Borde rline : 3.4-5 .4 Di l: >5.4 Not Available [address], [address], 09/15/2024 13:16:03 09/12/19 25 09/15/2024 TSH W/REF CHLOE TO FT4 TSH w/reflex to FT4 2.99 mIU/L normal Refer ence Range > or = 20 Years 0.40- 4.50 Pregn flavio Range s First trime ster 0.26- 2.66 Secon d trime ster 0.55- 2.73 Third trime ster 0.43- 2.91 Not Available [facility] [address] , [place], [address], 09/15/2024 13:16:04 09/12/19 25 09/15/2024 HEMOG LOBIN A1C hemoglobin A1C 5.1 %_of_ total _HGB <5.7 normal For the purpo se of cathie douglass for the prese nce of diabe syeda: <5.7% Consi stent with the absen ce of diabe syeda 5.7-6 .4% Consi stent with incre ased risk for diabe syeda (pred iabet es) > or =6.5% Consi stent with diabe syeda This assay resul t is consi stent with a decre ased risk of diabe syeda. Curre ntly, no conse nsus exist s carlitos haile use of hemog lobin A1c for diagn osis of diabe syeda in child roel. Accor ding to Ameri can Diabe syeda Assoc iatio n (ADA) guide lines , hemog lobin A1c <7.0% repre sents optim al contr ol in non-p regna nt diabe tic patie nts. Diffe rent metri cs may apply to speci fic patie nt popul ation s. Stand ards of Medic al Care in Diabe syeda(A DA). Not Available [facility] [address] , [place], [address], 09/15/2024 13:16:06 01/12/20 21 01/11/2021 MAMMO , cathie douglass, bilat eral No observ ation record ed. [id number], [place], [address], 08/02/2022 08:13:11 01/19/20 21 01/18/2021 US, pelvi s, compl ete No observ ation record ed. MIGRATION. [facility] (Imaging) [address] [place] [address] [address], [place], [address], 08/02/2022 08:13:11 12/29/19 22 12/28/2021 XR, elbow No observ ation record ed. MIGRATION. [address], [place], [address], 08/02/2022 08:13:11 09/24/19 25 09/23/2024 US, pelvi s No observ ation record ed. [facility] [address] [facility] [address], [place], [address], 09/24/2024 08:34:11 10/04/19 25 10/03/2024 imagi ng/di agnos tic resul t No observ ation record ed. [address] [facility] [address] , [place], [address], 10/07/2024 12:47:28 10/07/19 25 10/03/2024 imagi ng/di agnos tic resul t No observ ation record ed. [facility] [address] [facility] [address], [place], [address], 10/07/2024 12:49:23 10/07/19 25 10/03/2024 US, eitan xnadiya s, lower extre mity, unila teral No observ ation record ed. [email or web address] [address] , [place], [address], 10/07/2024 12:49:47 10/07/19 25 10/03/2024 arter ial study , lower extre mity, compl ete No observ ation record ed. [email or web address] [address], [place], [address], 10/07/2024 13:04:01 Result Notes None recorded. 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 2020 Not Available [facility] 3 08:07:58 Anxiety 31442061 Active Not Available [facility] 3 08:07:58 Cough 79856922 Completed Not Available [facility] 3 08:07:58 Upper respirator y infection 45964698 Completed Not Available [facility] 3 08:07:58 Posterior rhinorrhea 11629099 Completed Not Available [facility] 3 08:07:59 Chronic pain 22922984 Active Not Available [facility] 3 08:07:59 Seizure 81290719 Active 2004 Not Available [facility] 3 08:07:59 Abnormal menstrual cycle 00247463 Active 2024 JACINTA Reyes [address], [place], [address] , [employer] 5 14:38:32 Bilateral lower leg edema 954717053 Active 2024 JACINTA Reyes [address], [address], [place], [address] , [employer] 5 14:39:07 Anti-nucle ar factor detected 808733977 Active 2024 Cynthia Irwin, 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 Procedure Notes None recorded. Medical Equipment None Reported. Allergies Allergen ID Allergen Name Allergen Category Reaction Reaction Severity Criticality Documentation Date Start Date Code Code System Note Provider Name and Address Organization Details Recorded Time 75823 Topamax medicatio n Not available Not available Not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
--- OUTSIDE RECORDS SUMMARY | 2024-11-05 15:01 | XMS_ITS | CONTINUITY OF CARE DOCUMENT ---
Author Name tho, bhavinshana Address Unknown Organization [facility] Address [address] [facility] [address] [place] [address] Phone [phone] Care Team Providers Care Linen Tech Name Role Phone Kerri HAYS, Kandis Roa Unavailable FATOU MAURICIO MD Unavailable [phone] CHIEF HYDROELECTRIC STATION OPERATOR, Cynthia Unavailable PROBLEMS Condition Status Date Provider Notes Cardiology examination active Kandis fagan MD Swelling of bilateral legs active Kandis Manning MD Localized swelling of hands, b/l active David Manning MD [facility] positive active Kandis Manning MD Preop cardiovasc. examination active Dimitris Manning MD Cardiovascular Condition Screening active S gurvinder Manning MD ENCOUNTERS Date Type Provider Location Encounter Diag nosis - In-person encounter Office Visit Kandis Manning MD [facility] Cardiovascular Condition Screening - In-person encounter Office Visit Kandis Manning MD [facility] Cardiology examinationSwelling of bilateral legsLocalized swelling of hands, b/Ilan positivePreop cardiovasc. examination VITAL SIGNS Date Observation Value Provider Body Mass Index (Ratio) 23.87 kg/m2 Jeremy Manning MD blood pressure, diastolic 85 mm[Hg] Yadi Larson blood pressure, systolic 109 mm[Hg] Susan Larson oxygen saturation, oximetry 96 % Sara Larson pulse rate 85 /min Sara Larson respiratory rate E&M 12 /min Sara Larson weight E&M 157 [lb_av] Sara Larson height E&M 68 [in_i] Sara Larson blood pressure, cuff size regular Yadi Larson weight E&M 163 [lb_av] Mary bassett Body Mass Index (Ratio) 24.78 kg/m2 Jeremy Manning MD blood pressure, diastolic 90 mm[Hg] Yadi Larson blood pressure, systolic 125 mm[Hg] Susan Larson oxygen saturation, oximetry 97 % Sara Larson pulse rate 92 /min Sara Larson height E&M 68 [in_i] Sara Larson weight E&M 163 [lb_av] Sara Larson respiratory rate E&M 12 /min Sara Larson blood pressure, cuff size regular An israel Larson ALLERGIES No Known Drug Allergies HISTORY OF MEDICATION USE Medication Status Instructions Dates Provider Indications Com ments furosemide 20 mg tablet active Sara Larson tramadol 50 mg tablet active Sara Larson INSURANCE PROVIDERS Payer name Policy type / Coverage type [place] [employer] party ID [employer] MEDICARE VALUE ADVANTRA PPO 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 October 22, 2024 W as seen by rhumatologist and told it was a false positive [place] in [place] in [place]. She had cardiac and vascular testing done as noted above. Her EKG demonstrated PRWP. Stress without ischemia. Echo normal LV function. Negativel DVT study. Normal BEBETO. U leah review of invasive and noninvasive testing and recent exam the patient is an acceptable candidate for the planned HYSTERECTOMY surgical procedure recommend to maintain his blood pressure range of 110 to 140 mmHg and a heart rate of 60-80 B p.m.. It is okay to use IV beta blockers calcium channel blockers nitrates and afterload reducing agents to maintain the aforementioned hemodynamics parameters. Tele monitoring and EKG should be done if the patient has arrhythmia during procedure Kandis Manning MD Cardiology:Summary a nd Interpretation 1 . Normal exercise capacity 2 . Normal hemodynamic response to exercise. [address] or T changes. 4 . No significant arrhythmia except for rare PVCs. 5 . There is no evidence for exercise-induced myocardial ischemia . ...................................................... ............Ifeanyi Granados MD October 03, 2024 3:37 PM S he got to 92% of targed max HR. ECHO 10/03/24 CONCLUSIONS: 1 . Normal left ventricular systolic function. Normal left ventricular size. Normal left ventricular wall thickness. There is E to A w ave reversal consistent with impaired LV relaxation. E/E': 6.5. Left ventricular ejection fraction is measured at 65 %. 2 . Normal right ventricular size. Normal right ventricular systolic function. 3 . No significant valvular abnormalities E lectronically signed by Kandis Manning MD on 10/08/2024 at 1:18 PM Kandis Manning MD Cardiology:FINDINGS: A RTERIAL DOPPLER R ight Lower Extremity: Triphasic waveforms are seen in the common femoral, profunda femoris, proximal femoral, mid femoral, d istal femoral, popliteal, anterior tibial and posterior tibial. L eft Lower Extremity: Triphasic waveforms are seen in the common femoral, profunda femoris, proximal femoral, mid femoral, d istal femoral, popliteal, anterior tibial and posterior tibial. - C ONCLUSIONS: 1 . Normal arterial flow of the lower extremities bilaterally. E lectronically signed by Kandis Manning MD on 10/08/2024 at 1:18 PM F INDINGS: N ormal study: All veins examined are compressible at all levels and demonstrate normal flow with distal augmentation. - V ENOUS DOPPLER 10/08/24 CONCLUSIONS: 1 . No evidence of a deep vein thrombosis of the lower extremities bilaterally. 2 . No evidence of significant venous insufficiency of the lower extremities bilaterally. 3 . Right/Left lableing inaccurate. Kandis Manning MD Cardiology:Need to o btain echo and routine stress prior to providing clearance for her to undergo hysterectomy at [place] [facility] he will need to have clotting disorders evaluated by PCP and bath solution maker prior to hysterectomy surgery. Kandis Manning MD Cardiology:Obtain va scular studies of her LE to rule out venous reflux and BEBETO to r/o PAD Kandis Manning MD Cardiology:Intact al lens test bilaterally, doubt she has vascular issue, no history of reynauds Kandis Manning MD Cardiology:Cannot r/ o vascular etiology of swelling without venous duplex and BEBETO Kandis Manning MD Cardiology:Awaiting rheumatology test W ill proactively order a ESR and CRP prior to her seeing rheumatology S uspect that she has some element of contact dermatitis Kandis Manning MD Date Name Venous Doppler Bilat eral LE - Reflux Arterial Duplex Bi-L ower EX Stress Routine Complete Echo HISTORY OF PROCEDURES Procedure Date Procedure Name Provider Procedure Notes S tatus Complex e/m visit add on Kandis Manning MD completed EKG Kandis Manning MD compl eted EKG Kandis Manning MD compl eted
[2024-11-05 15:37] LABS: Hemoglobin 12.9 g/dL (12.0-15.0); Mean Corpuscular HGB Conc 33.1 g/dl (32-36); Mean Corpuscular Hemoglobin 32.6 pg (26-34); Mean Corpuscular Volume 98.5 fl (80-100); Platelet Count Result 180 k/mm3 (150-375); Red Blood Count 3.96 M/mm3 (4.2-5.4); Red Cell Distribution Width 12.8 % (11.5-14.5); White Blood Count 7.3 K/mm3 (4.5-10.0)
== END 2024-11-05 14:51 | disposition home or self-care (01) ==
LOC: ANHLAB 14:52
PROVIDERS: Visit Provider Student in an Organized Health Care Education/Training Program
DX: N93.9 Abnormal uterine and vaginal bleeding, unspecified (principal)
CPT/HCPCS: 36415; 85027; 86850; 86900; 86901

== ENCOUNTER 2024-11-11 01:02 | Day surgery (SDC) | payer MEDICARE, SELFPAY ==
[2024-11-05 09:16] VITALS: BMI 23.9
--- NOTE | 2024-11-05 09:17 | PC.NURSE ---
Report to the Outpatient Waiting Room, entrance under the green pavilion located off [facility], at time _0730_ on date _[id number]_. Planned Procedure Time: _0930_.? Time changes happen often and if your time is changed the preop area will call you the afternoon before. - You and your visitor will be asked to self-screen and do not enter if you have any COVID symptoms. Please call surgeon if you need to reschedule. - A mask is optional within the hospital at this time. Patients may have clear liquids (water, carbonated beverages, clear teas, apple juice) until 3 hours prior to surgery with a maximum of 20 ounces. - No food from midnight until time of surgery and no smoking, or chewing tobacco (or any form of nicotine). No chewing gum, candy or mints. Take only the following medications with a SIP of water on the morning of surgery: __If needed may use Albuterol, Tramadol and or Acetaminophen DO NOT STOP ANY OF YOUR OTHER PRESCRIPTION MEDICATIONS PRIOR TO SURGERY EXCEPT THE FOLLOWING Hold all vitamins and supplements for 3 days per anesthesiologist. Medications to discontinue per physician Date to take last dose Please no make-up, nail monegasque, hairspray, perfume, deodorant, or body powder the day of surgery.? No jewelry (including any body piercings) or valuables the day of surgery, leave them at home.? Please take a shower or bath the night before, or the morning of, surgery with an antibacterial soap.? Wear comfortable, loose fitting clothing.? - Jewelry must be removed prior to entering the operating room.? Rings and piercings that are not removed may be cut off. - The hospital will not accept responsibility for valuables.? - Please leave all valuables, including medications, at home the day of surgery. If you are going home after surgery, a licensed electric screw driver operator must drive you home.? - NO public transportation without another adult if you receive anesthesia. - We recommend that an adult stay with you for 24 hours following discharge. - We also recommend that you do not drive, make important decision, drink alcoholic beverages, or take any drugs that were not prescribed by your health care provider for at least 24 hours after your discharge time. Follow any additional instructions given to you from your surgeon. Telephone instructions given to __Melissa___and asked if any additional questions and then verbalized understanding. Patient advised to call surgeon office or pre surgery nurse liaison [phone] if any additional questions.
--- NOTE | 2024-11-10 13:03 | PM.IMHP ---
H&P: HPI History of Present Illness Date/Time: 11/10/24 13:03 Chief Complaint: abnormal uterine bleeding pelvic pain Narrative: 48 yo female how presents for robotic TLH/BS for AUB and pelvic pain. Patient thought she was entering menopause until she developed abnormal bleeding. Pt prefers definitive management via hysterectomy. Review of Systems Cardiovascular: Cardiovascular: Denies chest pain, Denies leg edema, Denies palpitations, Denies dyspnea and Denies dyspnea on exertion Respiratory: Respiratory: Denies cough, Denies dyspnea and Denies dyspnea on exertion Gastrointestinal: Gastrointestinal: Denies abdominal pain, Denies constipation, Denies diarrhea, Denies nausea and Denies vomiting Genitourinary: Genitourinary: Denies hematuria, Denies urinary frequency, Denies dysuria, Denies pelvic pain, Denies urinary incontinence and Denies vaginal discharge Neurologic: Reports system reviewed and no additional complaints, except as documented Psychiatric: Psychiatric: Reports no additional psychiatric complaints Endocrine: Endocrine: Denies palpitations PMFSH Past Medical History Medical History (Updated 11/10/24 @ 13:04 by Art Montenegro MD) Abnormal Pap smear of cervix Encounter for Pap cervical smear following prior abnormal smear Screening mammogram for breast cancer Endometriosis Chronic pain disorder Asthma Surgical History Surgical History (Updated 09/18/24 @ 08:47 by Deysi Mann CMA) History of cervical cerclage H/O colposcopy with cervical biopsy Hx of cholecystectomy H/O dilation and curettage H/O laparoscopy Family History Family History Sibling Asthma Father Hypertension Grandparent Stomach cancer Hypertension Other Diabetes mellitus Social History Social History (Updated 09/18/24 @ 08:48 by Deysi Mann CMA) Smoking status: Never smoker Alcohol intake: current Substance use: never Substance use type: does not use Living arrangements: with family Occupation/Education: occupation Gender identity (if verbalized by the patient): Female Sexual Orientation (if Verbalized by the Patient): Straight or Heterosexual Spiritual care concerns: No Meds Home Medications and Allergies Home Medications ?Medication ?Instructions ?Recorded ?Confirmed ?Type albuterol sulfate 90 mcg/actuation 2 puff inhalation QID PRN 01/02/21 11/05/24 Rx aerosol inhaler shortness of breath or wheezing #8.5 grams furosemide 20 mg tablet 20 mg PO BID 09/18/24 11/05/24 History tramadol 50 mg tablet 50 mg PO Q6H PRN pain 09/18/24 11/05/24 History cetirizine 10 mg tablet (24Hour 10 mg PO DAILY PRN allergy symptoms 11/05/24 11/05/24 History Allergy) uryxacrbmlpm-Ns-jken-minerals (One tablet PO DAILY 11/05/24 History Daily Calcium/Iron tablet) Allergies Allergy/AdvReac Type Severity Reaction Status Date / Time topiramate Allergy Severe STROKE Verified 11/05/24 09:06 LIKE SYSTOMS ON L SIDE nitrofurantoin Allergy Intermediate Headache Verified 11/05/24 09:06 gabapentin Allergy Nausea and Verified 11/05/24 09:06 Vomiting Exam Const: General: no acute distress Eyes: EOM: EOMs intact bilaterally Neck: Neck: supple Thyroid: thyroid normal Chest: Breast/axilla inspection: normal inspection of the breasts Breast/axilla palpation: normal palpation of the breasts, normal palpation of the axillae and no axillary lymphadenopathy Resp: Effort & Inspection: normal respiratory effort Auscultation: clear to auscultation bilaterally Cardio: Rate: regular rate Rhythm: regular rhythm GI: Inspection: non-distended GI Palp: Yes Soft to palpation, No Tenderness to palpation present (GI) and No Guarding due to palpation present (GI) Auscultation: normal bowel sounds : General: No bladder normal to palpation External Female Exam: normal external appearance Speculum Exam - Vagina: normal vaginal discharge and No vaginal bleeding Speculum Exam - Cervix: nontender Bimanual exam- vagina & uterus: No bladder normal to palpation and No Cervical tenderness present OB/external & speculum: No vaginal bleeding Skin: General skin exam: normal color and no rashes or lesions noted Neuro: Cognition (Neuro): normal cognition Speech: normal speech Extrem: General: normal to inspection and no edema Psych: Mental Status: mental status grossly normal Affect: normal affect Assessment and Plan Assessment and plan (1) Abnormal uterine bleeding (AUB): Code(s): N93.9 - Abnormal uterine and vaginal bleeding, unspecified Status: Acute Assessment and Plan: 48 yo female who present for robotic TLH/BS for AUB and pelvic pain pt has been having heavy bleeding with associated pain pelvic US showed uterus measures 7.1x 3.2x 3.5 cm Hypoechoic area seen in the fundus measuring 1.4 x 1.1 x 1.5 cm. endometrial lining was 5 mm pt elects for definitive management via hysterectomy risks, benefits, alternatives reviewed (2) Pelvic pain: Code(s): R10.2 - Pelvic and perineal pain Status: Acute
[2024-11-11] VITALS (15 sets, daily range): BP systolic 96–126; BP diastolic 50–76; PULSE 53–112; RESP 12–20; TEMP 36–36.8; O2SAT 94–100
--- OUTSIDE RECORDS SUMMARY | 2024-11-11 01:05 | XMS_ITS | Clinical Summary ---
Author Organization [facility] Address [address] [place] [address] Care Team Providers Care Painter Set Name Role Phone Cynpatricnéstor Lavon Primary Care Provider [phone] Source Comments [facility],non-owned Affiliates and Associated Physician Practices is amultiple site organization consisting of ambulatory clinics and hospital sitesin [place], [place], [place] and [place]. This disclosure is being madepursuant to the Care Everywhere program and may not contain all information available regarding this patient. Last updated 18.[facility] Allergies Active Allergy Reactions Criticality Noted Date Comments Gabapentin Nausea and/or Vomiting 10/07/2024 Nitrofurantoin Headache 10/07/2024 Pregabalin Unknown 10/07/2024 Lyrica Topiramate Anaphylaxis High 10/07/2024 Topamax Medications * Be aware that medications may not be up to date on this document. Alwaysverify current medications with the patient. furosemide (Lasix) 20 MG tablet Take 1 (one) tablet by mouth 2 times daily Active traMADol (Ultram) 50 MG tablet TAKE 1 TABLET BY MOUTH TWICE DAILY FOR 15 DAYS NEEDED Active albuterol (Proventil;Vent anthony) (2.5 MG/3ML) 0.083% nebulizer solution Inhale 3 mL 3 times a day by nebulization route. 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 Approximately 15% of the normal population will have a positive TEJ test;and can also be seen in other conditions, such as thyroid diseases, viral infections or caused by some medications. The finding of a positive antinuclear antibody (TEJ), especially with a low pretest probability for an associated connective tissue disease, is currently considered to be of undetermined clinical significance (often referred to as a false positive result) with her historical elements/symptoms reviewed, current clinical examination findings, and additional available laboratory results reviewed, regarding this result not consistent with a specific diagnosis of a defined systemic connective tissue disease including systemic lupus erythematosus or systemic inflammatory rheumatic disorder by [employer] (ACR) diagnostic classification criteria at this time. Madeleine Williamson lacks features of any systemic autoimmune TEJ-related connective tissue disease. TEJ positivity is present in up to 30% of the normal population . Since the prevalence of SLE is only ~0.1%, most positive TEJ results can be attributed to other etiologies or considered represent f alse-positive results. TEJ positivity increases in prevalence with female gender, older age, and numerous other conditions. Antinuclear antibody overview: A test for antinuclear antibodies (TEJ) is common in people who are suspected of having an autoimmune or systemic connective tissue disease disorder. Antibodies are proteins that are made as part of the immune response. The result of an TEJ test may be used in 1 or more ways: To aid in diagnosis of an autoimmune or connective tissue disease disorder, to rule out autoimmune or connective tissue disease disorders in people presenting only with a few symptoms, to measure disease activity, and order to determine the specific type of disease that affects the patient. Of people with the following disorders or characteristics may have positive TEJ test results including systemic lupus erythematosus, scleroderma, mixed connective tissue disease, polymyositis/dermatomyositis, rheumatoid arthritis, rheumatoid vasculitis, Sjogren syndrome, drug-induced lupus, discoid lupus, possibly articular juvenile chronic idiopathic arthritis or ANCA related vasculitic syndromes. In addition, some people with autoimmune diseases that affect the gastrointestinal tract, thyroid gland, liver, or lung (including Chris's thyroiditis, Graves disease, autoimmune hepatitis, primary biliary cirrhosis, primary autoimmune cholangitis, inflammatory bowel disease including Crohn's disease or ulcerative colitis, and idiopathic pulmonary arterial hypertension) can have a positive TEJ test. Additionally, certain chronic infectious diseases, such as mononucleosis/EBV, hepatitis C virus infection, subacute bacterial endocarditis, tuberculosis, lymphoproliferative diseases, and human immunodeficiency virus (HIV) may also produce a positive TEJ test. As such, a positive TEJ does not necessarily mean that the person has lupus or another systemic connective tissue disease disorder. As noted earlier, many healthy people may have a positive TEJ test. The TEJ test is said to be a f alse positive test result when a person test positive but does not have any other features of autoimmune disease. This situation occurs more often in women and elderly people especially when tested in individuals with a low pretest probability for systemic lupus erythematosus or other systemic rheumatic connective tissue disease. Certain medications also may increase the chance of having a positive TEJ test which may or may not represent a drug-induced lupus type syndrome. Depending on the symptoms that led to the initial TEJ screening testing may be necessary and ordered for further evaluation may or may not be recommended for 1 or more of the disorders that can be associated with a positive TEJ. Encounters Date Type Department Care Team Description 10/07/2024 9:00 AM CDT Office Visit [facility] - Rheumatology [address], [address] [place] [address] Surjit Garsia DO False positive tej (Primary Dx) 09/16/2024 Telephone [facility] - Rheumatology [address], [address] [place] [address] Surjit Garsia DO Referral from Last 3 Months Social History Tobacco Use Types Packs/Day Years Used Date Smoking Tobacco: Never Assessed PHQ-2 Answer Date Recorded Patient Health Questionnaire-2 Score 0 10/07/2024 Comments Unknown Sex and Gender Information Value Date Recorded Sex Assigned at Not on file Legal Sex Female 5:00 PM CDT Gender Identity Not on file Sexual Orientation Not on file Last Filed Vital Signs Vital Sign Reading Time Taken Comments Blood Pressure 132/88 10/07/2024 8:49 AM CDT Pulse 84 10/07/2024 8:49 AM CDT Temperature 36.1 C (97 F) 10/07/2024 8:49 AM CDT Respiratory Rate 16 10/07/2024 8:49 AM CDT Oxygen Saturation 99% 10/07/2024 8:49 AM CDT Inhaled Oxygen Concentration - - Weight 76.7 kg (169 lb) 10/07/2024 8:49 AM CDT Height - - Body Mass Index - - Plan of Treatment Health Maintenance Due Date Last Done Comments COLON MONITORING 1973 COLONOSCOPY - COLON CA SCREENING 1973 CT COLONOGRAPHY - COLON CA SCREENING 1973 FIT - COLON CA SCREENING 1973 FLEX SIG - COLON CA SCREENING 1973 LIPID TESTING 1973 MAMMOGRAM 1973 PAP SMEAR 1973 HIV SCREENING 1988 HEPATITIS C SCREENING 12/20/1991 DTAP/TDAP/TD VACCINES (1 - Tdap) 1992 HEPATITIS B VACCINE (1 of 3 - 19+ 3-dose series) 1992 PNEUMOCOCCAL VACCINE 50+ (1 of 1 - PCV) 12/25/2023 ZOSTER VACCINE (1 of 2) 12/25/2023 COVID-19 VACCINE (3 - 2023- season) 2024 09/20/2020, 08/30/2020 MEDICARE AWV CALENDAR YEAR 2024 INFLUENZA VACCINE (Season Ended) 2025 03/18/2018, 03/26/2015, 03/18/2014, Additional history exists COLOGUARD (AGES 45-75) - COLON CA SCREENING 07/06/2025 07/06/2022 Colorectal Cancer Screening 07/06/2025 DEPRESSION SCREENING Completed 10/07/2024 HIB VACCINE Aged Out No longer eligi ble based on patient's age to complete this topic HPV VACCINE Aged Out No longer eligi ble based on patient's age to complete this topic MENINGOCOCCAL (Group B) VACCINE SHARED DECISION-MAKING Aged Out No longer eligible based on patient's age to complete this topic MENINGOCOCCAL GROUPS A/C/Y/W VACCINE Aged Out No longer eligible based on patient's age to complete this topic Insurance [employer] MEDICARE ADV Care Teams Painter Set Relationship Specialty Start Date End Date Cynthia Irwin [address] [place] [phone] PCP - General 10/07/24
--- OUTSIDE RECORDS SUMMARY | 2024-11-11 01:05 | XMS_ITS | Data Portability ---
Author Organization [facility] [employer], Main Office Address [address] [place] [address] Assessment No assessment recorded. Plan of Treatment Reminders Order Date Submit Date Provider Last Modified By Organization Details Last Modified Time Details Appointments None recorded. Lab CBC w/ auto diff 2024 025 [facility] (Lab), [address] [place], [address], 13:16:00 CMP, serum or plasma 2024 025 [facility] (Lab), [address] [place], [address], 13:15:58 TSH, serum or plasma 2024 025 [facility] (Lab), [address] [place], [address], 13:16:04 lipid panel, serum 2024 025 [facility] (Lab), [address] [place], [address], 13:15:57 glycohemog lobin, total, blood [address] [facility] ([facility]), [address] [place], [address], 5 07:59:17 vitamin B12 + folate, serum or blood 2024 025 [facility] (Lab), [address] [place], [address], 13:16:03 ROSE (antinucle ar antibodies ) panel, serum 2024 025 [facility] (Lab), [address] [place], [address], 08:00:[address] referral - Would like hysterecto my. Please call patient to schedule an appointmen t. Thank you 2024 025 AAYUSH Mcnair MD, [address] [facility] [address], [place], [address], 17:40:25 Procedures None recorded. Surgeries None recorded. Imaging None recorded. Medication Orders furosemide 20 mg tablet 2024 [id number], [address], [place], [place], [id number], 15:39:52 Patient TargetsNo targets recorded. Patient InstructionsNo instructions recorded. Reason for Referral Supervisor Yard Referral for Ab normal menstrual cycle Would [...] pg/mL will have sympt oms. Not Available [facility] [address], [address], 01/02/2021 08:50:46 01/02/20 21 01/02/2021 VITAM IN B12/F OLATE , SERUM PANEL folate, serum 3.6 NG/mL low Refer ence Range Low: <3.4 Borde rline : 3.4-5 .4 Di l: >5.4 Not Available [facility] [address], [address], 01/02/2021 08:50:46 01/09/20 21 01/09/2021 CBC (INCL UDES DIFF/ PLT) white blood cell count 6.6 thous and/u L 3.8-10 .8 normal Not Available [facility] [address], [address], 01/09/2021 07:32:22 01/09/20 21 01/09/2021 CBC (INCL UDES DIFF/ PLT) red blood cell count 3.64 monique on/uL 3.80-5 .10 low Not Available [facility] [address], [address], 01/09/2021 07:32:22 01/09/20 21 01/09/2021 CBC (INCL UDES DIFF/ PLT) hemoglobin 12.5 g/dL 11.7-1 5.5 normal Not Available [facility] [address], [address], 01/09/2021 07:32:22 01/09/20 21 01/09/2021 CBC (INCL UDES DIFF/ PLT) hematocrit 36.4 % 35.0-4 5.0 normal Not Available [facility] [address], [address], 01/09/2021 07:32:22 01/09/20 21 01/09/2021 CBC (INCL UDES DIFF/ PLT) MCV 100.0 fL 80.0-1 00.0 normal Not Available [address], [address], 01/09/2021 07:32:22 01/09/20 21 01/09/2021 CBC (INCL UDES DIFF/ PLT) MCH 34.3 pg 27.0-3 3.0 high Not Available [address], [address], 01/09/2021 07:32:22 01/09/20 21 01/09/2021 CBC (INCL UDES DIFF/ PLT) MCHC 34.3 g/dL 32.0-3 6.0 normal Not Available [address], [address], 01/09/2021 07:32:22 01/09/20 21 01/09/2021 CBC (INCL UDES DIFF/ PLT) RDW 11.7 % 11.0-1 5.0 normal Not Available [address], [address], 01/09/2021 07:32:22 01/09/20 21 01/09/2021 CBC (INCL UDES DIFF/ PLT) platelet count 244 thous and/u L 140-40 0 normal Not Available [address], [address], 01/09/2021 07:32:22 01/09/20 21 01/09/2021 CBC (INCL UDES DIFF/ PLT) MPV 10.3 fL 7.5-12 .5 normal Not Available [address], [address], 01/09/2021 07:32:22 01/09/20 21 01/09/2021 CBC (INCL UDES DIFF/ PLT) absolute neutrophils 3696 cells /uL 1500-7 800 normal Not Available [address], [address], 01/09/2021 07:32:22 01/09/20 21 01/09/2021 CBC (INCL UDES DIFF/ PLT) absolute lymphocytes 2171 cells /uL 850-39 00 normal Not Available [address], [address], 01/09/2021 07:32:22 01/09/20 21 01/09/2021 CBC (INCL UDES DIFF/ PLT) absolute monocytes 587 cells /uL 200-95 0 normal Not Available [address], [address], 01/09/2021 07:32:22 01/09/20 21 01/09/2021 CBC (INCL UDES DIFF/ PLT) absolute eosinophils 92 cells /uL 15-500 normal Not Available [address], [address], 01/09/2021 07:32:22 01/09/20 21 01/09/2021 CBC (INCL UDES DIFF/ PLT) absolute basophils 53 cells /uL 0-200 normal Not Available [address], [address], 01/09/2021 07:32:22 01/09/20 21 01/09/2021 CBC (INCL UDES DIFF/ PLT) neutrophils 56 % normal Not Available [address], [address], 01/09/2021 07:32:22 01/09/20 21 01/09/2021 CBC (INCL UDES DIFF/ PLT) lymphocytes 32.9 % normal Not Available [address], [address], 01/09/2021 07:32:22 01/09/20 21 01/09/2021 CBC (INCL UDES DIFF/ PLT) monocytes 8.9 % normal Not Available [facility] [place] [address], [place], [address], 01/09/2021 07:32:22 01/09/20 21 01/09/2021 CBC (INCL UDES DIFF/ PLT) eosinophils 1.4 % normal Not Available [facility] [address], [place], [address], 01/09/2021 07:32:22 01/09/20 21 01/09/2021 CBC (INCL UDES DIFF/ PLT) basophils 0.8 % normal Not Available [facility] [address] [address], [place], [address], 01/09/2021 07:32:22 03/16/20 21 03/16/2021 rapid strep group A, throa t STREP A negati ve Not Available [facility] [address] , [address], [place], [address], 03/16/2021 12:52:03 07/06/19 23 07/06/2022 COLOG UARD [...] of 10,00 0 indiv idual s at [facility] risk for color ectal cance r who [...] asymp tomat ic indiv idual s at [facility] risk for color ectal cance r. Follo [...] 112:1 016-1 030. TEST DESCR IPTIO N: [place] site algor ithmi c shanon sis of [...] years or older , who are at [facility] for color ectal cance r (CRC) . Colog uard has been appro jacob for use by the [place] FDA. The perfo rmanc e of Colog uard was estab lishe d in a cross secti onal study of [facility] sk adult s aged 50-84 [...] adeno ma (incl uding sessi le fred natanael polyp s great er than or equal to 1cm diame ter) [20%] or non- advan arthur adeno ma [31%] ; or no color ectal neopl [place] [45%] . These estim ates are deriv ed from a prosp ectiv e cross -sect ional scree rafat study of 0 indiv idual s at [facility] risk for color ectal cance r who [...] Only) [address], [place], [address], 07/13/2022 11:20:52 09/12/1909/15/2024 LIPID PANEL , STAND VJ cholesterol, total 286 mg/dL <200 high Not Available [facility] [address] [address] [place], [address], 09/15/2024 13:15:57 09/12/1909/15/2024 LIPID PANEL , STAND VJ HDL cholesterol 119 mg/dL > or = 50 normal Not Available [facility] [address] [address] [place], [address], 09/15/2024 13:15:57 09/12/19 25 09/15/2024 LIPID PANEL , STAND VJ triglyceride s 92 mg/dL <150 normal Not Available [facility] [address] [address] [place], [address], 09/15/2024 13:15:57 09/12/1909/15/2024 LIPID PANEL , STAND [...] eddieos tics. com/f aq/FA Q164) Not Available [facility] [address] [address] [place], [address], 09/15/2024 13:15:57 09/12/19 09/15/2024 LIPID PANEL , STAND VJ chol/HDLC ratio 2.4 (calc ) <5.0 normal Not Available [address], [address], 09/15/2024 13:15:57 09/12/19 25 09/15/2024 LIPID PANEL , STAND VJ non HDL cholesterol 167 mg/dL _(eron c) <130 high For patie nts with diabe syeda plus 1 major ASCVD risk facto r, treat ing to a non-H DL-C goal of <100 mg/dL (LDL- C of <70 mg/dL ) is consi dered a thera peuti c optio n. Not Available [address] [address] [place], [address], 09/15/2024 13:15:57 09/12/19 25 09/15/2024 COMPR EHENS GERMÁN METAB OLIC PANEL glucose 109 mg/dL 65-99 high Fasti ng refer ence inter cherry For someo ne witho ut known diabe syeda, a gluco se value betwe en 100 and 125 mg/dL is consi stent with predi abete s and shoul d be confi rmed with a follo w-up test. Not Available [address], [address], 09/15/2024 13:15:58 09/12/1909/15/2024 COMPR EHENS GERMÁN METAB OLIC PANEL urea nitrogen (BUN) 21 mg/dL 7-25 normal Not Available [facility] [address] [address] [place], [address], 09/15/2024 13:15:58 09/12/19 25 09/15/2024 COMPR EHENS GERMÁN METAB OLIC PANEL creatinine 0.68 mg/dL 0.50-1 .03 normal Not Available [address] [address] [place], [address], 09/15/2024 13:15:58 09/12/19 25 09/15/2024 COMPR EHENS GERMÁN METAB OLIC PANEL eGFR 106 mL/mi n/1.7 3m2 > or = 60 normal Not Available [address], [address], 09/15/2024 13:15:58 09/12/19 25 09/15/2024 COMPR EHENS GERMÁN METAB OLIC PANEL BUN/creatini ne ratio SEE NOTE: (calc ) 6-22 Not Repor natanael: BUN and Creat inine are withi n refer ence range . Not Available [address], [address], 09/15/2024 13:15:58 09/12/19 25 09/15/2024 COMPR EHENS GERMÁN METAB OLIC PANEL sodium 139 mmol/ L 135-14 6 normal Not Available [address], [address], 09/15/2024 13:15:58 09/12/19 25 09/15/2024 COMPR EHENS GERMÁN METAB OLIC PANEL potassium 3.6 mmol/ L 3.5-5. 3 normal Not Available [address], [address], 09/15/2024 13:15:58 09/12/19 25 09/15/2024 COMPR EHENS GERMÁN METAB OLIC PANEL chloride 97 mmol/ L 98-110 low Not Available [address], [address], 09/15/2024 13:15:58 09/12/19 25 09/15/2024 COMPR EHENS GERMÁN METAB OLIC PANEL carbon dioxide 31 mmol/ L 20-32 normal Not Available [address], [address], 09/15/2024 13:15:58 09/12/19 25 09/15/2024 COMPR EHENS GERMÁN METAB OLIC PANEL calcium 10.1 mg/dL 8.6-10 .4 normal Not Available [address], [address], 09/15/2024 13:15:58 09/12/19 25 09/15/2024 COMPR EHENS GERMÁN METAB OLIC PANEL protein, total 7.8 g/dL 6.1-8. 1 normal Not Available [address], [address], 09/15/2024 13:15:58 09/12/19 25 09/15/2024 COMPR EHENS GERMÁN METAB OLIC PANEL albumin 4.5 g/dL 3.6-5. 1 normal Not Available [address], [address], 09/15/2024 13:15:58 09/12/19 25 09/15/2024 COMPR EHENS GERMÁN METAB OLIC PANEL globulin 3.3 g/dL_ (calc ) 1.9-3. 7 normal Not Available [address], [address], 09/15/2024 13:15:58 09/12/19 25 09/15/2024 COMPR EHENS GERMÁN METAB OLIC PANEL albumin/glob ulin ratio 1.4 (calc ) 1.0-2. 5 normal Not Available [address], [address], 09/15/2024 13:15:58 09/12/19 25 09/15/2024 COMPR EHENS GERMÁN METAB OLIC PANEL bilirubin, total 0.9 mg/dL 0.2-1. 2 normal Not Available [address], [address], 09/15/2024 13:15:58 09/12/19 25 09/15/2024 COMPR EHENS GERMÁN METAB OLIC PANEL alkaline phosphatase 83 U/L 37-153 normal Not Available [address], [address], 09/15/2024 13:15:58 09/12/19 25 09/15/2024 COMPR EHENS GERMÁN METAB OLIC PANEL AST 27 U/L 10-35 normal Not Available [address], [address], 09/15/2024 13:15:58 09/12/19 25 09/15/2024 COMPR EHENS GERMÁN METAB OLIC PANEL ALT 21 U/L 6-29 normal Not Available [address], [address], 09/15/2024 13:15:58 09/12/19 25 09/15/2024 CBC (INCL UDES DIFF/ PLT) white blood cell count 7.9 thous and/u L 3.8-10 .8 normal Not Available [address], [address], 09/15/2024 13:15:59 09/12/19 25 09/15/2024 CBC (INCL UDES DIFF/ PLT) red blood cell count 4.47 monique on/uL 3.80-5 .10 normal Not Available [address], [address], 09/15/2024 13:15:59 09/12/19 25 09/15/2024 CBC (INCL UDES DIFF/ PLT) hemoglobin 14.8 g/dL 11.7-1 5.5 normal Not Available [address], [address], 09/15/2024 13:15:59 09/12/19 25 09/15/2024 CBC (INCL UDES DIFF/ PLT) hematocrit 44.5 % 35.0-4 5.0 normal Not Available [address], [address], 09/15/2024 13:15:59 09/12/19 25 09/15/2024 CBC (INCL UDES DIFF/ PLT) MCV 99.6 fL 80.0-1 00.0 normal Not Available [address], [address], 09/15/2024 13:15:59 09/12/19 25 09/15/2024 CBC (INCL UDES DIFF/ PLT) MCH 33.1 pg 27.0-3 3.0 high Not Available [address], [address], 09/15/2024 13:15:59 09/12/19 25 09/15/2024 CBC (INCL UDES DIFF/ PLT) MCHC 33.3 g/dL 32.0-3 6.0 normal For adult s, a sligh t decre ase in the calcu lated MCHC value (in the range of 30 to 32 g/dL) is most likel y not clini mitch signi cali t; fracisco er, it shoul d be inter prete d with cauti on in [facility] n with other red cell tara eters and the patie nt's clini eron condi tion. Not Available [address], [address], 09/15/2024 13:15:59 09/12/19 25 09/15/2024 CBC (INCL UDES DIFF/ PLT) RDW 12.3 % 11.0-1 5.0 normal Not Available [address], [address], 09/15/2024 13:15:59 09/12/19 25 09/15/2024 CBC (INCL UDES DIFF/ PLT) platelet count 202 thous and/u L 140-40 0 normal Not Available [address], [address], 09/15/2024 13:15:59 09/12/19 25 09/15/2024 CBC (INCL UDES DIFF/ PLT) MPV 10.6 fL 7.5-12 .5 normal Not Available [address], [address], 09/15/2024 13:15:59 09/12/19 25 09/15/2024 CBC (INCL UDES DIFF/ PLT) absolute neutrophils 5301 cells /uL 1500-7 800 normal Not Available [address], [address], 09/15/2024 13:15:59 09/12/19 25 09/15/2024 CBC (INCL UDES DIFF/ PLT) absolute lymphocytes 1793 cells /uL 850-39 00 normal Not Available [address], [address], 09/15/2024 13:15:59 09/12/19 25 09/15/2024 CBC (INCL UDES DIFF/ PLT) absolute monocytes 593 cells /uL 200-95 0 normal Not Available [address], [address], 09/15/2024 13:15:59 09/12/19 25 09/15/2024 CBC (INCL UDES DIFF/ PLT) absolute eosinophils 182 cells /uL 15-500 normal Not Available [address], [address], 09/15/2024 13:15:59 09/12/19 25 09/15/2024 CBC (INCL UDES DIFF/ PLT) absolute basophils 32 cells /uL 0-200 normal Not Available [facility] [address], [address], 09/15/2024 13:15:59 09/12/19 25 09/15/2024 CBC (INCL UDES DIFF/ PLT) neutrophils 67.1 % normal Not Available [address], [address], 09/15/2024 13:15:59 09/12/19 25 09/15/2024 CBC (INCL UDES DIFF/ PLT) lymphocytes 22.7 % normal Not Available [address] [address] [place], [address], 09/15/2024 13:15:59 09/12/19 25 09/15/2024 CBC (INCL UDES DIFF/ PLT) monocytes 7.5 % normal Not Available [address] [address] [place], [address], 09/15/2024 13:15:59 09/12/19 25 09/15/2024 CBC (INCL UDES DIFF/ PLT) eosinophils 2.3 % normal Not Available [address], [address], 09/15/2024 13:15:59 09/12/19 25 09/15/2024 CBC (INCL UDES DIFF/ PLT) basophils 0.4 % normal Not Available [address] [address] [place], [address], 09/15/2024 13:15:59 09/12/19 25 09/15/2024 ROSE SCREE [...] spivey purpo ses only. ) Not Available [address] [address] [place], [address], 09/15/2024 13:16:01 09/12/19 25 09/15/2024 ANTIN UCLEA R ANTIB ODIES TITER AND PATTE RN ROSE titer 1:80 titer high A low level ROSE titer may be prese nt in pre-c linic al autoi mmune disea ses and di l indiv idual s. Refer ence Range <1:40 Negat germán 1:40- 1:80 Low Antib debby Level >1:80 [place] natanael Antib debby Level Not Available [address], [address], 09/15/2024 13:16:02 09/12/19 25 09/15/2024 ANTIN UCLEA [...] g/10. 1515/ cclm- 2017- 0052) Not Available [address], [address], 09/15/2024 13:16:02 09/12/19 25 09/15/2024 VITAM IN B12/F OLATE , SERUM PANEL vitamin B12 549 pg/mL 200-11 00 normal Not Available [address], [address], 09/15/2024 13:16:03 09/12/19 25 09/15/2024 VITAM IN B12/F OLATE , SERUM PANEL folate, serum 13.0 NG/mL normal Refer ence Range Low: <3.4 Borde rline : 3.4-5 .4 Di l: >5.4 Not Available [address], [address], 09/15/2024 13:16:03 09/12/19 25 09/15/2024 TSH W/REF CHLOE TO FT4 TSH w/reflex to FT4 2.99 mIU/L normal Refer ence Range > or = 20 Years 0.40- 4.50 Pregn flavio Range s First trime ster 0.26- 2.66 Secon d trime ster 0.55- 2.73 Third trime ster 0.43- 2.91 Not Available [facility] [address] [address] , [place], [address], 09/15/2024 13:16:04 09/12/19 25 09/15/2024 HEMOG LOBIN [...] Care in Diabe syeda(A DA). Not Available [facility] [address] [address] [address] , [place], [address], 09/15/2024 13:16:06 01/12/20 21 01/11/2021 MAMMO , cathie douglass, bilat eral No observ ation record ed. [id number], [place], [address], 08/02/2022 08:13:11 01/19/20 21 01/18/2021 US, pelvi s, compl ete No observ ation record ed. MIGRATION. [facility] (Imaging) [address] [place] [address] [address], [place], [address], 08/02/2022 08:13:11 12/29/19 22 12/28/2021 XR, elbow No observ ation record ed. MIGRATION. [address], [place], [address], 08/02/2022 08:13:11 09/24/19 25 09/23/2024 US, pelvi s No observ ation record ed. [facility] [address] [facility] [address], [place], [address], 09/24/2024 08:34:11 10/04/19 25 10/03/2024 imagi ng/di agnos tic resul t No observ ation record ed. [address] [facility] [address] , [place], [address], 10/07/2024 12:47:28 10/07/19 25 10/03/2024 imagi ng/di agnos tic resul t No observ ation record ed. formerly [facility] [address] [facility] [address], [place], [address], 10/07/2024 12:49:23 10/07/19 25 10/03/2024 US, eitan xnadiya s, lower extre mity, unila teral No observ ation record ed. formerly [facility] [address] , [place], [address], 10/07/2024 12:49:47 10/07/19 25 10/03/2024 arter ial study , lower extre mity, compl ete No observ ation record ed. formerly [facility] [address], [place], [address], 10/07/2024 13:04:01 Result Notes None recorded. Problems Name Problem SNOMED Code Status Onset Date Resolution Date Notes Provider Name and Address Organization Details Recorded Time Folic acid deficiency 265675029 Active 2020 Not Available [facility] 3 08:07:57 Asthma 130206437 Active Not Available [facility] 3 08:07:58 Headache 51154161 Completed Not Available [facility] 3 08:07:58 Bronchitis 86204802 Completed Not Available [facility] 3 08:07:58 Depressive disorder 59798634 Active Not Available [facility] 3 08:07:58 Arthritis 0469574 Active Not Available [facility] 3 08:07:58 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 2020 Not Available [facility] 3 08:07:58 Anxiety 75412461 Active Not Available [facility] 3 08:07:58 Cough 37438867 Completed Not Available [facility] 3 08:07:58 Upper respirator y infection 27589927 Completed Not Available [facility] 3 08:07:58 Posterior rhinorrhea 40479722 Completed Not Available [facility] 3 08:07:59 Chronic pain 44190383 Active Not Available [facility] 3 08:07:59 Seizure 23554400 Active 2004 Not Available [facility] 3 08:07:59 Abnormal menstrual cycle 54938406 Active 2024 JACINTA Reyes [address] [facility], [place], [address] , [employer] 5 14:38:32 Bilateral lower leg edema 418589517 Active 2024 JACINTA Reyes [address], [address], [place], [address] , [employer] 5 14:39:07 Anti-nucle ar factor detected 284850820 Active 2024 Cynthia Irwin, CHANCERY CLERK [address] [facility], [facility] [address], [place], [address] , [facility] 5 08:40:56 Problem Notes None recorded. Procedures Surgical History Date Name Laterality Status Provider Name and Address Organization Details Recorded Time [facility] Procedure completed Not Available [facility] 08/02/2022 08:05:13 Cholecystectomy completed [facility] Available [facility] 08/02/2022 08:05:13 Imaging Results None recorded. Procedure Notes None recorded. Medical Equipment None Reported. Allergies Allergen ID Allergen Name Allergen Category Reaction Reaction Severity Criticality Documentation Date Start Date Code Code System Note Provider Name and Address Organization Details Recorded Time 56362 Topamax medicatio n Not available Not available Not available 08/02/2022 92613 3 RxNorm KEESHA THESI A Not Available [facility] 3 08:13:00 23125 Macrobid medicatio n headache Not available Not available 08/02/2022 28811 1 RxNorm Not Available [facility] 3 08:13:00 24438 Lyrica medicatio n Not available Not available Not available 08/02/2022 09899 1 RxNorm EMISI S Not Available [facility] 3 08:13:00 89343 gabapenti n medicatio n nausea Not available Not available 08/02/2022 99655 RxNorm Not Available [facility] 3 08:13:00 Medications Name Sig Start Date [...] ne 500 mg solution for injection active [facility]#: [id number] Not Available Not Available Not Available [...] Address Organization Details Last Updated DateTime 5 33644.7 4 g 25.1 kg/m2 172.72 cm 97.3 [degF] 20 /min 108 /min 98 % 98 % 146 mm[Hg] 96 mm[Hg] Emily Jacob RN [place] [facility] [employer] 5 14:19:09 Date Recorded Body mass index (BMI) Body height Oxygen saturation Oxygen saturation in Arterial blood by Pulse oximetry Heart rate Body temperature Body weight Systolic blood pressure Diastolic blood pressure Provider Name and Address Organization Details Last Updated DateTime 1 22.7 kg/m2 172.72 cm 99 % 99 % 99 /min 97.5 [degF] 12955.2 6 g 106 mm[Hg] 72 mm[Hg] Not Available [employer] 3 08:05:29 Date Recorded Body mass index (BMI) Body height Oxygen saturation Oxygen saturation in Arterial blood by Pulse oximetry Heart rate Body temperature Body weight Systolic blood pressure Diastolic blood pressure Provider Name and Address Organization Details Last Updated DateTime 2 23.9 kg/m2 172.72 cm 99 % 99 % 81 /min 97.5 [degF] 59283 g 118 mm[Hg] 78 mm[Hg] Not Available [facility] 3 08:05:29 Date Recorded Body height Provider Name an d Address Organization Details Last Updated DateTime 01/10/2021 172.72 cm Not Available [facility] 3 08:05:30 Social History Question Answer Notes LastModified by Organizat ion Details LastModified Time Tobacco Smoking Status Never Smoker Not Available [facility] 08/02/2022 08:04:52 Do You Have An Advance Directive? No Information not available 09/09/2024 What Is Your Level Of Caffeine Consumption? Moderate [id number] Information not available 08/02/2022 In The 14 [...] Do You Have A Medical Power Of Limousine Rental Clerk? No Information not available 09/09/2024 What Was The Date Of Your Most Recent Tobacco Screening? 03/18/2018 [id number] Information not available 08/02/2022 How Many Children [...] is your level of alcohol consumption? Occasional [id number] Information not available 08/02/2022 What is your occupation? disabled [id number] Information not available 08/02/2022 What is your exercise level? None Information not available 09/09/2024 Mental Status Question Answer Note LastModified by Organization D etails LastModified Time Do you feel stressed (tense, restless, nervous, or anxious, or unable to sleep at night)? [id number] Information not available 09/09/2024 Family History Relationship Description Onset Age of this Age Resolved Age Notes LastModified by Organization Details LastModified Time Father Diabetes mellitus [id number] Not available 08/02/2022 08:05:14 Paternal Grandfather Diabetes mellitus [id number] Not available 08/02/2022 08:05:14 Paternal Grandfather Malignant tumor of stomach [email or web address] Not available 2024 14:03:58 Maternal Grandmother Hypertensive disorder [id number] Not available 08/02/2022 08:05:14 Maternal Grandmother Alzheimer's disease [email or web address] Not available 2024 14:03:58 Maternal Grandfather Hypertensive disorder [id number] Not available 08/02/2022 08:05:14 Maternal Grandfather Cerebrovascu lar accident [email or web address] Not available 01/2025 14:03:58 Medical History Condition Response ARTHRITIS Y ASTHMA Y DEPRESSION (INCLUDING POST ) Y HEADACHES/MIGRAINES Y SEIZURES/EPILEPSY Y NEUROPATHY Y ANEMIA/BLOOD DISORDER Y Gynecological History Statement/Question Response Date of [...] mcg/0.3 mL dose 1 completed Not Available [facility] 08/02/2022 08:12:43 COVID-19, mRNA, LNP-S, PF, 30 mcg/0.3 mL dose 1 completed Not Available [facility] 08/02/2022 08:12:43 Influenza, split virus, quadrivalent, preservative 8 completed Not Available [facility] 08/02/2022 08:12:43 Influenza, split virus, trivalent, preservative 5 completed Not Available [facility] 08/02/2022 08:12:43 Influenza, split virus, trivalent, preservative 4 completed Not Available [facility] 08/02/2022 08:12:44 Influenza, split virus, trivalent, preservative 2 completed Not Available [facility] 08/02/2022 08:12:44 Tdap 2 completed Not Available [facility] 08/02/2022 08:12:44 Influenza, split virus, quadrivalent, PF 8 completed Not Available [facility] 08/02/2022 08:12:45 Past Encounters Encounter ID Performer Location Encounter Start Date Encounter Closed Date Diagnosis/Indication Diagnosis SNOMED-CT Code Diagnosis ICD10 Code Diagnosis Note [id number] Emil Paez MD [facility] [place] buchanan [address] [place] [address] 12/02/2020 00:00:00 12/02/2020 12:52:09 [id number] Emil Paez MD [facility] [place] [address] [place] [address] [place] [address] 01/10/2021 00:00:00 02/01/2021 17:16:19 [id number] Emil Paez MD [facility] [place] [address] [place] [address] [place] [address] 03/16/2021 00:00:00 03/16/2021 12:57:25 [id number] Emil Paez MD [facility] [place] [address] [place] [address] [place] [address] 12/27/2021 00:00:00 12/27/2021 17:10:36 [id number] Reagan So MD [address] [address] 09/09/2024 14:02:32 09/09/2024 15:13:13 Adult health examination 030692026 Z00.00 [facility] e reviewedDi scussed diet and exercisePa tient questions answered Abnormal m enstrual cycle [id number] N92.6 Wants hysterecto my Bilateral lower leg edema [id number] R60.0 Pain, numbness, tingling. Did not tolerate gabapentin , Lyrica, or Diclofenac Advised to continue ibuprofen and tylenol Disorder o f vitamin B12 [id number] E53.8 Health Concerns Section Related Observation LastModified by Organization Detai ls LastModified Time None Recorded Concern Status LastModified by Organization Details LastModified Time None Recorded Advance Directives Directive N: Payers Encounter Date Sequence Insurance Name Policy Number Policy Sanchez Covered Member ID Sanchez Member ID Guarantor Name 09/09/2024 1 [employer] (MEDICARE REPLACEMENT/ ADVANTAGE - PPO) [id number] Madeleine Williamson [id number] Madeleine Williamson Notes Date Note Type Note [...] ER visit showed mild diverticulitis. Cynthia Irwin, JACNITA [address] [facility] [address], [place], [address], [facility] [employer] 09/09/2024 15:42:46 OBGyn Episode No OBEpisode recorded.
--- OUTSIDE RECORDS SUMMARY | 2024-11-11 01:05 | XMS_ITS | CONTINUITY OF CARE DOCUMENT ---
Author Name tho, bhavinshana Address Unknown Organization [facility] Address [address] [place] [address] Phone [phone] Care Team Providers Care Fashion Intern Name Role Phone Kerri HAYS, Kandis Roa Unavailable FATOU MAURICOI MD Unavailable Alida MILITARY COMMUNICATIONS SPECIALIST, Cynthia Unavailable [phone] PROBLEMS Condition Status Date Provider Notes Cardiology [...] In-person encounter Office Visit Kandis Manning MD [facility] Cardiovascular Condition Screening - In-person encounter Office Visit Kandis Manning MD [facility] Cardiology examinationSwelling of bilateral legsLocalized swelling [...] Payer name Policy type / Coverage type [employer] MEDICARE VALUE ADVANTRA PPO 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 October 22, 2024 W as seen by rhumatologist and told it was a false positive ROSE in [place] in [place]. She had cardiac and vascular testing done [...] clearance for her to undergo hysterectomy at [place] [facility] he will need to have clotting disorders evaluated by PCP and records tech prior to hysterectomy surgery. Kandis Manning MD [...]
[2024-11-11] MEDS: ACETAMINOPHEN 500 MG TABLET 1000 MG PO ×3 (07:55→18:52)
[2024-11-11] MEDS: LACTATED RINGERS 1,000 ML 30 ML IV CONT ×2 (08:00→10:35)
[2024-11-11] MEDS: KETOROLAC 15 MG/ML VIAL (*BKC) IV PUSH ×2 (08:05→11:38)
[2024-11-11 08:12] LABS: BEDSIDEPREGUCG Negative (Negative)
[2024-11-11] MEDS: SCOPOLAMINE 1 MG PATCH 1 PATCH TRANSDERM (08:14)
[2024-11-11 08:24] LABS: Anion Gap 15 mmol/L (4-12); Blood Urea Nitrogen 15 mg/dL (7-17); Calcium 10.2 mg/dL (8.4-10.2); Carbon Dioxide 18 mmol/L (22-30); Chloride 99 mmol/L (98-107); Estimated CRCL calculation 82 ml/min; Estimated Glomerular Filt Rate > 60; Glucose 96 mg/dL (65-110); Potassium 3.8 mmol/L (3.4-5.0); Sodium 132 mmol/L (137-145)
--- NOTE | 2024-11-11 08:45 | WPDHPUPDATE1 ---
History and Physical Update Update Date/Time: 11/11/24 08:45 pt presents for robotic TLH/BS. discussed ovarian preservation with patient. Discussed associated risks with removal of ovaries including but not limited to increased risk of all cause mortality and osteopetrosis. History and Physical has been reviewed, including an updated exam of the patient. There are NO changes in the patient's condition. Risks, benefits, and alternatives have been discussed and questions answered. Patient agrees to proceed with procedure.
--- NOTE | 2024-11-11 08:47 | P.PNAN_ITS ---
Anes - Initial Pre Proc Eval Procedure: Operation Date: 11/11/24 09:30 Proposed Procedures p Robotic Assisted Total Laparoscopic Hysterectomy with Bilateral Salpingectomy - Art Montenegro MD Date/Time: 11/11/24 08:47 Surgeon: Art Montenegro MD Pre Op Diagnosis: Abnormal Uterine Bleeding Patient Data Age: 48 Gender: F Height: 1.73 m Weight: 70.1 kg Last Vital Signs Temp 36.4 C 11/11/24 07:39 Pulse 112 H 11/11/24 07:39 Resp 16 11/11/24 07:39 BP 108/76 11/11/24 07:39 Pulse Ox 100 11/11/24 07:39 O2 Del Method Room Air 11/11/24 07:39 Allergies Allergy/AdvReac Type Severity Reaction Status Date / Time topiramate Allergy Severe STROKE Verified 11/11/24 07:55 LIKE SYSTOMS ON L SIDE nitrofurantoin Allergy Intermediate Headache Verified 11/11/24 07:55 gabapentin Allergy Nausea and Verified 11/11/24 07:55 Vomiting Home Medications ?Medication ?Instructions ?Recorded ?Confirmed ?Type albuterol sulfate 90 mcg/actuation 2 puff inhalation QID PRN 01/02/21 11/05/24 Rx aerosol inhaler shortness of breath or wheezing #8.5 grams furosemide 20 mg tablet 20 mg PO BID 09/18/24 11/11/24 History tramadol 50 mg tablet 50 mg PO Q6H PRN pain 09/18/24 11/05/24 History cetirizine 10 mg tablet (24Hour 10 mg PO DAILY PRN allergy symptoms 11/05/24 11/05/24 History Allergy) gnxjkunyoeza-Du-bmak-minerals (One 1 tablet PO DAILY 11/05/24 11/11/24 History Daily Calcium/Iron tablet) Laboratory Tests 11/11/24 11/11/24 07:59 08:10 Sodium 132 L mmol/L (137-145) Potassium 3.8 mmol/L (3.4-5.0) Chloride 99 mmol/L (98-107) Carbon Dioxide 18 L mmol/L (22-30) Anion Gap 15 H mmol/L (4-12) BUN 15 mg/dL (7-17) Creatinine 0.71 mg/dL (0.7-1.0) Estim Creat Clear Calc 82 ml/min Estimated GFR > 60 (59 - ) Glucose 96 mg/dL (65-110) Calcium 10.2 mg/dL (8.4-10.2) POC Urine HCG, Qual Negative (Negative) Patient hx anesthesia problems: none Family hx anesthesia problems: none Results Review: All pre-operative results and documents have been reviewed as part of the pre- operative evaluation. [facility] Past Medical History Medical History Abnormal Pap smear of cervix Encounter for Pap cervical smear following prior abnormal smear Screening mammogram for breast cancer Endometriosis Chronic pain disorder Asthma Surgical History Surgical History History of cervical cerclage H/O colposcopy with cervical biopsy Hx of cholecystectomy H/O dilation and curettage H/O laparoscopy Family History Family History Sibling Asthma Father Hypertension Grandparent Stomach cancer Hypertension Other Diabetes mellitus Social History Social History Smoking status: Never smoker Alcohol intake: current Substance use: never Substance use type: does not use Living arrangements: with family Occupation/Education: occupation Gender identity (if verbalized by the patient): Female Sexual Orientation (if Verbalized by the Patient): Straight or Heterosexual Spiritual care concerns: No Anes - Eval Final PreProcedure Day of Procedure 11/11/24 08:47 Patient weight: normal Heart: regular rate and rhythm Lungs: clear to auscultation Airway: Mallampati scale class 1 Neurological: alert and oriented Last oral intake: >/= 8 hours ASA classification: II Emergent: no Anesthetic plan: proceed Anesthesia type and monitoring: general ETT and standard monitoring Results Review: All pre-operative results and documents have been reviewed as part of the pre- operative evaluation. Informed Consent: The patient's anesthetic plan and its attendant risks and benefits were discussed with the patient/family/POA. Questions were solicited and answers provided to the satisfaction of the patient/family/POA.
[2024-11-11] MEDS: ceFAZolin 2 GM/D5W 50 ML 2 GM/50 ML BAG IVPB (09:20)
--- NOTE | 2024-11-11 09:52 | S_PTH ---
PATIENT: Madeleine Williamson LOC: [facility] U#:[id number] AGE/SX: 48/F ROOM: RE11/11/[address]: Art Montenegro MD : 1975 BED: DIS: 11/12/2024 SPEC #: [id number] RECD: 11/11/24 10:47 STATUS: MANOJ REQ #: [id number] PABLO: 11/11/24 09:[address]: Art Montenegro DEPT: [facility] Surgical RECD BY: Lorena Foote ENTERED: 11/11/24 10:47 SP TYPE: Surgical OTHR DR: Cynthia Irwin, AUTOMATIC PROFILE SHAPER OPERATOR Tissues: A - Uterus Procedures: Hematoxylin and Eosin Stain Gross and Microscopic Level 5
[2024-11-11] MEDS: LIDO 1%/EPINEPHRINE 1:100,000 20 ML VIAL 22 ML INFILTRATE (09:55)
--- NOTE | 2024-11-11 10:22 | W.PM.PROC2 ---
Procedure Note - Detailed Date of Procedure 11/11/24 Pre-op Diagnosis Abnormal Uterine Bleeding pelvic pain Post-op Diagnosis Same Procedure Performed robotic assisted total laparoscopic hysterectomy and bilateral salpingectomy Surgeon Art Montenegro MD Anesthesia General Indications pelvic pain AUB Findings normal appearing uterus, bilateral fallopian tubes, and ovaries Description of Procedure After the patient was appropriately consented she was taken to the operating room where she was transferred to the table in a dorsal supine position. General anesthesia was then induced with endotracheal intubation. The patient was transferred to a dorsal lithotomy position using adjustable yellow-fin stirrups. Her position was adjusted for appropriate support of her lower back and lower extremities. The patient was prepped and draped. A transurethral patrick catheter was place. The cervix was sequentially dilated and a STELLA uterine manipulator placed in typical fashion about a 3 cm LEIDY ring. Gloves were changed. After confirmation of a functioning orogastric tube, lidocaine was injected at Mondragon's point in the LUQ and a 5mm incision was made. A 5mm Optiview trocar was then inserted into the abdominal cavity under direct visualization and done so without complication. The abdomen was then insufflated with approximately 2-3L of CO2 establishing a pneumoperitoneum and the patient was placed in Trendelenburg position. Just above the umbilicus in the midline, a 8mm incision made after injection of lidocaine and a 12mm bladeless trocar advanced into the abdominal cavity under direct visualization without incident. We subsequently placed two robotic ports in a similar fashion, one in the left mid-quadrant and one in the right, 10cm lateral to the midline port. The robot was then docked. Attention was turned to the left pelvis. The left fallopian tube was removed by sequentially dividing the mesosalpinx towards the uterus sparing the ovary. The utero-ovarian ligament was desiccated and transected, as was the round ligament. The posterior peritoneal leaf was taken down to the LEIDY ring. The anterior leaf was developed as well as the start of the bladder flap. The left uterine artery was then skeletonized and desiccated and transected just above the level of the LEIDY ring. Attention was turned to the right pelvis. The right fallopian tube was removed by sequentially dividing the mesosalpinx towards the uterus sparing the ovary. The utero-ovarian ligament was desiccated and transected, as was the round ligament. The posterior peritoneal leaf was taken down to the LEIDY ring. The anterior leaf was developed as well as the start of the bladder flap. The right uterine artery was then skeletonized and desiccated and transected just above the level of the LEIDY ring. The bladder was then further dissected inferiorly over the level of the LEIDY ring. A circumferential colpotomy was made using monopolar current. The uterus, cervix, bilateral tubes were then delivered transvaginally. I then placed a single figure of eight suture of 0-vicryl in the left corner of the vaginal cuff. I then re-approximated the colpotomy with a running #1 PDO Quill suture in 2 layers. Following this dissection, the abdomen and pelvis were copiously irrigated and all surgical sites found to be hemostatic. Skin sites were reapproximated with 4-0 Vicryl in a subcuticular fashion. Steri-Strips were placed. The patient tolerated the procedure well. Sponge, needle and instrument counts were correct x 2 and the patient was taken to recovery in stable condition. Ancef was given for antimicrobial prophylaxis. The patient had SCD's on for VTE prophylaxis during the entire procedure. Estimated Blood Loss 25 Drains No Pathology Yes (cervix, fallopian tubes, uterus) Complications No immediate complications Condition Stable Disposition PACU [facility] Billing Surgery - Charge Forward: Surgery Billing
[2024-11-11] MEDS: fentaNYL CITRATE INJ (*CRX) 100 MCG/2 ML VIAL 25 MCG IV PUSH ×6 (10:47→11:04)
[2024-11-11] MEDS: HYDROmorphone HCL INJ (*CRX) 1 MG/ML SYR 0.5 MG IV PUSH ×4 (11:09→11:30)
--- NOTE | 2024-11-11 11:49 | P.DS_ITS ---
DS: Admitting Diagnosis Discharge Date 11/12/24 Admitting Diagnosis pelvic pain abnormal uterine bleeding dysmenorrhea DS: Discharge Diagnosis Discharge Diagnosis (1) Status post hysterectomy: Code(s): Z90.710 - Acquired absence of both cervix and uterus Status: Acute DS: Summary Hospital Course Hospital Course: Madeleine Williamson was admitted after robotic assisted total laparoscopic hysterectomy and bilateral salpingectomy for abnormal uterine bleeding. pelvic pain, and dysmenorrhea. The above procedure was performed with no complications. She is doing well post op. She states her pain is well controlled with PO medications. She reports minimal bleeding. She is ambulating up to the chair. Her patrick catheter was removed. She is tolerating PO without N/V. She reports passing flatus. Status at Discharge Overall status at discharge: patient is progressing back to baseline Time Spent with Patient Time attestation: Total time spent providing and/or coordinating discharge services: Time spent: Less than 30 minutes Exam Const: General: comfortable and no acute distress Limitations: no limitations Resp: Effort & Inspection: normal respiratory effort Auscultation: clear to auscultation bilaterally Cardio: Rate: regular rate Rhythm: regular rhythm GI: Inspection: non-distended GI Palp: Yes Soft to palpation, Yes Tenderness to palpation present (GI) (milder tenderness to deep palpation) and No Guarding due to palpation present (GI) Auscultation: normal bowel sounds Other: incisions C/D/I covered with dermabond Urinary Catheter: Urinary Catheter: urine clear Skin: General skin exam: normal color Extrem: General: normal to inspection Psych: Mental Status: mental status grossly normal Affect: normal affect DS: Data Data Completed and Pending Pending studies at discharge: Pending at discharge 11/11/24 09:52 Surgical [PTH] Routine Labs on day of discharge: Labs from last 24 hours 11/11/24 11/11/24 08:10 07:59 Sodium 132 L Potassium 3.8 Chloride 99 Carbon Dioxide 18 L Anion Gap 15 H BUN 15 Creatinine 0.71 Estim Creat Clear Calc 82 Estimated GFR > 60 Glucose 96 Calcium 10.2 POC Urine HCG, Qual Negative Discharge Plan Discharge Patient Disposition: Home Discharge Instructions: Remove the Scopolamine patch that was placed behind your ear in 72 hours or less. Wash your hands after touching. Patient Instructions: Laparoscopic Hysterectomy (DC) Patient Language: Ukrainian Stand Alone Forms: General Discharge Instructions Follow-up/Referrals: Art Montenegro MD [Physician] - 2 Weeks Discharge Medications: No Action furosemide 20 mg tablet 20 mg PO BID tramadol 50 mg tablet 50 mg PO Q6H PRN (Reason: pain) albuterol sulfate 90 mcg/actuation HFA aerosol inhaler 2 puff inhalation QID PRN (Reason: shortness of breath or wheezing) Qty: 8.5 0RF cetirizine [24Hour Allergy] 10 mg tablet 10 mg PO DAILY PRN (Reason: allergy symptoms) One Daily Calcium/Iron Tablet 1 tablet PO DAILY
--- NOTE | 2024-11-11 12:30 | PC.NURSE ---
PT Madeleine Williamson transported to room #283 via bed with support person- Aunt at bedside.
[2024-11-11] MEDS: SIMETHICONE 80 MG TAB.CHEW PO ×2 (13:00→17:17)
[2024-11-11] MEDS: KETOROLAC 30 MG/ML VIAL (*BKC) IV PUSH ×2 (13:00→18:53)
[2024-11-11] MEDS: oxyCODONE HCL (*CRX) 5 MG TAB IR 10 MG PO ×2 (14:54→22:35)
[2024-11-11] MEDS: DOCUSATE SODIUM 100 MG CAPSULE PO (17:17)
[2024-11-11] MEDS: traMADol HCL (*CRX) 50 MG TABLET PO ×2 (17:17→23:55)
[2024-11-12] MEDS: ACETAMINOPHEN 500 MG TABLET 1000 MG PO ×2 (01:05→06:36)
[2024-11-12] MEDS: KETOROLAC 30 MG/ML VIAL (*BKC) IV PUSH (01:05)
[2024-11-12 04:30] VITALS: BP 113/69; PULSE 53; RESP 18; TEMP 36.2; O2SAT 97
[2024-11-12] MEDS: oxyCODONE HCL (*CRX) 5 MG TAB IR 10 MG PO (04:55)
[2024-11-12] MEDS: traMADol HCL (*CRX) 50 MG TABLET PO (05:52)
[2024-11-12] MEDS: IBUPROFEN 600 MG TABLET PO (06:38)
[2024-11-12] MEDS: SIMETHICONE 80 MG TAB.CHEW PO (06:38)
[2024-11-12] MEDS: DOCUSATE SODIUM 100 MG CAPSULE PO (06:38)
[2024-11-12 07:50] VITALS: BP 114/62; PULSE 56; RESP 16; TEMP 36.4; O2SAT 100
== END 2024-11-12 08:20 | disposition home or self-care (01) ==
LOC: ANHSURGERY 08:15 → ANHOB2 12:54
PROVIDERS: Anesthesiology; Visit Provider Student in an Organized Health Care Education/Training Program
PROC: (CPT 58571; principal; 2024-11-11 09:30)
DX: N93.9 Abnormal uterine and vaginal bleeding, unspecified (principal); R10.2 Pelvic and perineal pain; N72 Inflammatory disease of cervix uteri; D25.9 Leiomyoma of uterus, unspecified; N84.0 Polyp of corpus uteri
CPT/HCPCS: 58571; S2900; 36415; 80048; 88307; 99199; A9270; J0690; J1100; J1171; J1885; J2003; J2004; J2250; J2405; J2704; J3010; J7030; J7120

== ENCOUNTER 2025-03-10 09:39 | Outpatient (CLI) | payer MEDICARE, SELFPAY ==
--- NOTE | ~2025-03-10 | MM_ITS ---
EXAMINATION: MM screening collin BI w alok HISTORY: Screening TECHNIQUE: Craniocaudal and mediolateral oblique 3-D tomosynthesis images were obtained and synthetic 2-D images were generated. CAD analysis was submitted and interpreted. COMPARISON: 01/11/2021 BREAST PARENCHYMAL COMPOSITION: There are scattered areas of fibroglandular density. FINDINGS: There is no evidence of suspicious mass, calcification, or architectural distortion to suggest malignancy in either breast. IMPRESSION: 1. No mammographic evidence of malignancy. 2. Recommend routine screening mammography in one year. BI-RADS Category 1: Negative Reviewed, dictated and finalized at location B.
--- OUTSIDE RECORDS SUMMARY | 2025-03-10 10:16 | XMS_ITS | Clinical Summary ---
Author Organization [facility] Address [address] [facility] [place] [address] Care Team Providers Care Costume Designer Name Role Phone Cynpatricnéstor Ycnthia Primary Care Provider [phone] Source Comments [facility],non-owned Affiliates and Associated Physician Practices is amultiple site organization consisting of ambulatory clinics and hospital sitesin [place], [place], [place] and [place]. This disclosure is being madepursuant to the Care Everywhere program and may not contain all information available regarding this patient. Last updated 18.[facility] Allergies Active Allergy Reactions Criticality Noted Date [...] erythematosus or systemic inflammatory rheumatic disorder by [employer] (ACR) diagnostic classification criteria at this time. Madeleine Wililamson lacks features of any systemic autoimmune TEJ-related [...] that can be associated with a positive ETJ. Social History Tobacco Use Types Packs/Day Years [...] SCREENING 1975 LIPID TESTING 1975 MAMMOGRAM 1973 HIV SCREENING 1988 HEPATITIS C SCREENING 12/20/1991 DTAP/TDAP/TD VACCINES (1 - Tdap) 1992 HEPATITIS B VACCINE (1 of 3 - 19+ 3-dose series) 1992 PAP SMEAR 1994 PNEUMOCOCCAL VACCINE 50+ (1 of 1 - PCV) 12/25/2023 ZOSTER VACCINE (1 of 2) 12/25/2023 MEDICARE AWV CALENDAR YEAR 2024 COVID-19 VACCINE (3 - season) 2025 09/20/2020, 08/30/2020 INFLUENZA VACCINE (#1) 2025 8, 03/26/2015, 03/18/2014, Additional history exists COLOGUARD (AGES [...] complete this topic Insurance [employer] MEDICARE ADV SELF PAY NO INSURANCE Member Subscriber Plan / Payer (Ef fective for All Dates) Name:Madeleine Williamson Member ID:Not on file Relation to Subscriber:Not on file Name:EMILYCHELEMADELEINE Subscriber ID:Not on file (Home) Address: [address] [place], [place] [address] [address] Payer ID:Not on file Group ID:Not on file Type:Self Pay Address: [place], [place] Care Teams Costume Designer Relationship Specialty Start Date End Date Cynthia Irwin [address] [place] [id number] PCP - General 10/07/24
--- OUTSIDE RECORDS SUMMARY | 2025-03-10 10:17 | XMS_ITS | Patient Health Record ---
Author Organization [facility] Address [address] [place] [address] Care Team Providers Care Magazine Hand Name Role Phone Ranjith Sidhu Unavailable [phone] Reason For Referral No Information Medications Medication SIG (Take, Route, Frequency, Duration) Notes Start Date End Date Status Prazosin HCl 1 MG Capsule Oral 12/16/2018 Active Viibryd 40 MG Tablet Oral 12/16/2018 Active Prazosin HCl 2 MG Capsule Oral 12/16/2018 Active Vilazodone HCl 10 MG Tablet Oral 12/16/2018 Active Immunizations Vaccine Route Administration Date Status Comme nts Influenza virus vaccine, quadrivalent (IIV4), split virus, 0.25 mL dosage Unknown 03/18/2018 Administered Influenza, seasonal, injecta ble, preservative free, 3 yrs and above Unknown 02/27/2012 Administered Influenza, seasonal, injecta ble, preservative free, 3 yrs and above Unknown 03/18/2014 Administered Influenza, seasonal, injecta ble, preservative free, 3 yrs and above Unknown 03/26/2015 Administered Novel [id number], preservative free Unknown 03/18/2018 Administered Tdap Unknown 02/27/2012 Administered Social History Social History Additional Details Category Social Info Options Details Migrated Social History Migrated Social History Alcohol Intake: Occasional 04/06/2020,Tobacco Years: Never smoker 04/06/2020,Smoking Status: 0 04/06/2020 Plan Of Treatment No Information Insurance Providers Payer Name Payer Address Payer Phone Subscriber Number Group Number Insured Name Patient Relationship to Insured Coverage Start Date Coverage End Date Medicare-I l Medicare [address] [facility] [place] [phone] [id number] TATY DIAZ Self - patient is the insured Medical (General) History Surgical History Surgery Date(Month/Year) Endometr ablate thermal (05348) Removal of gallbladder (87940)
== END 2025-03-10 09:40 | disposition home or self-care (01) ==
LOC: ANHFOHIMG 09:41
PROVIDERS: Visit Provider Student in an Organized Health Care Education/Training Program
DX: Z12.31 Encounter for screening mammogram for malignant neoplasm of breast (principal); N93.9 Abnormal uterine and vaginal bleeding, unspecified
CPT/HCPCS: 77063; 77067